=== PATIENT | male | born 1985 | race American Indian/Alaskan Native ===

== ENCOUNTER 2018-10-25 18:40 | Inpatient (IN) | payer OTHER ==
--- NOTE | 2018-10-25 19:12 | Emergency Department Report ---
Blank Doc - Documentation Documentation: This is a 33-year-old male that presents with abdominal pain and hematuria. D enies any n/v. This initial assessment/diagnostic orders/clinical plan/treatment(s) is/are subject to change based on patient's health status, clinical progression and re- assessment by fellow clinical providers in the ED. Further treatment and workup at subsequent clinical providers discretion. Patient/guardians urged not to elope from the ED as their condition may be serious if not clinically assessed and managed. Initial orders include: 1- Patient sent to MAIN ED for further evaluation and treatment 2- labs 3- UA
[2018-10-25 19:44] LABS: Basophils # (Auto) 0.1 K/mm3 (0.0-0.1); Basophils % (Auto) 0.5 % (0.0-1.8); Eosinophils # (Auto) 0.2 K/mm3 (0.0-0.4); Eosinophils % (Auto) 0.9 % (0.0-4.3); Hematocrit 44.6 % (35.5-45.6); Hemoglobin 15.4 gm/dl (11.8-15.2); Lymphocytes # (Auto) 1.5 K/mm3 (1.2-5.4); Lymphocytes % (Auto) 7.9 % (13.4-35.0); Mean Corpuscular HGB Conc 34 % (32-34); Mean Corpuscular Volume 99 fl (84-94); Monocytes # (Auto) 1.8 K/mm3 (0.0-0.8); Monocytes % (Auto) 9.8 % (0.0-7.3); Platelet Count 252 K/mm3 (140-440); Red Blood Count 4.52 M/mm3 (3.65-5.03); Red Cell Distribution Width 14.5 % (13.2-15.2)
[2018-10-25 20:06] LABS: Alanine Aminotransferase 15 units/L (7-56); Albumin 4.7 g/dL (3.9-5); BUN/Creatinine Ratio 8; Blood Urea Nitrogen 7 mg/dL (9-20); Calcium 9.8 mg/dL (8.4-10.2); Hemolysis Index 2
--- NOTE | 2018-10-25 20:08 | Emergency Department Report ---
ED Abdominal Pain HPI - General Chief Complaint: Abdominal Pain Stated Complaint: STOMACH PAIN/BLOOD IN STOOL/THYROID Time Seen by Provider: 10/25/18 19:11 Source: patient Mode of arrival: Wheelchair Limitations: No Limitations - History of Present Illness Initial Comments: Patient is a 33-year-old male that since emergency room with abdominal pain 1 d ay. Patient states he is having left lower quadrant pain that is worsening. Patient states the pain is an 8 out of 10. Patient states he is also having dysuria. Patient also complaining of constipation. Patient states the pain is radiating to the suprapubic region. Patient states the pain is better with rest and worse with movement. Patient states that also like a refill of his thyroid medication. MD Complaint: abdominal pain -: Sudden Location: LLQ Radiation: suprapubic Migration to: no migration Severity: severe Severity scale (0 -10): 8 Quality: stabbing Consistency: constant Improves With: rest Worsens With: eating, movement Associated Symptoms: constipation, dysuria, hematochezia. denies: nausea, vomiting, diarrhea, fever, chills, hematemesis, melena, hematuria, syncope - Related Data Home Medications Medication Instructions Recorded Confirmed Last Taken Levothyroxine [Synthroid] 75 mcg PO QAM 10/26/18 10/26/18 Unknown Allergies Allergy/AdvReac Type Severity Reaction Status Date / Time No Known Allergies Allergy Unverified 10/25/18 18:45 ED Review of Systems ROS: Stated complaint: STOMACH PAIN/BLOOD IN STOOL/THYROID Other details as noted in HPI Constitutional: denies: chills, fever Eyes: denies: eye pain, eye discharge, vision change ENT: denies: ear pain, throat pain Respiratory: denies: cough, shortness of breath, wheezing Cardiovascular: denies: chest pain, palpitations Endocrine: no symptoms reported Gastrointestinal: abdominal pain, constipation, hematochezia. denies: nausea, vomiting, diarrhea Genitourinary: dysuria. denies: urgency Musculoskeletal: denies: back pain, joint swelling, arthralgia Skin: denies: rash, lesions Neurological: denies: headache, weakness, paresthesias Psychiatric: denies: anxiety, depression Hematological/Lymphatic: denies: easy bleeding, easy bruising ED Past Medical Hx - Past Medical History Previous Medical History?: Yes Additional medical history: Hypothyroidism - Surgical History Past Surgical History?: No - Family History Family history: no significant - Social History Smoking Status: Current Every Day Smoker Substance Use Type: Marijuana - Medications Home Medications: Home Medications Medication Instructions Recorded Confirmed Last Taken Type Levothyroxine [Synthroid] 75 mcg PO QAM 10/26/18 10/26/18 Unknown History ED Physical Exam - General Limitations: No Limitations General appearance: alert, in no apparent distress - Head Head exam: Present: atraumatic, normocephalic - Eye Eye exam: Present: normal appearance - ENT ENT exam: Present: mucous membranes moist - Neck Neck exam: Present: normal inspection - Respiratory Respiratory exam: Present: normal lung sounds bilaterally. Absent: respiratory distress - Cardiovascular Cardiovascular Exam: Present: regular rate, normal rhythm. Absent: systolic murmur, diastolic murmur, rubs, gallop - GI/Abdominal GI/Abdominal exam: Present: soft, tenderness (left lower quadrant tenderness to palpation), normal bowel sounds - Rectal Rectal exam: Present: deferred - Extremities Exam Extremities exam: Present: normal inspection - Back Exam Back exam: Present: normal inspection - Neurological Exam Neurological exam: Present: alert, oriented X3 - Psychiatric Psychiatric exam: Present: normal affect, normal mood - Skin Skin exam: Present: warm, dry, intact, normal color. Absent: rash ED Course Vital Signs 10/25/18 10/25/18 10/25/18 19:12 22:32 23:45 Temperature 98.8 F Pulse Rate 81 74 Respiratory 18 18 Rate Blood Pressure 135/89 Blood Pressure 142/85 [Left] O2 Sat by Pulse 100 97 99 Oximetry - Reevaluation(s) Reevaluation #1: I discussed all results with patient. I discussed plan of care with patient. Patient agrees with plan of care. 10/25/18 22:59 - Consultations Consultation #1: General surgery paged 10/25/18 22:59 I discussed case with general surgeon, Dr. Tavarez. Gen. surgery recommends admission, IV antibiotics and nothing by mouth after midnight. 10/25/18 23:04 Consultation #2: Hospitalist consulted for admission. Hospitalist to admit the patient 10/25/18 23:07 ED Medical Decision Making - Lab Data Result diagrams: 10/25/18 19:21 10/25/18 19:21 - Radiology Data Radiology results: report reviewed CT ABDOMEN AND PELVIS WITHOUT AND WITH CONTRAST INDICATION / CLINICAL INFORMATION: Left lower quadrant abdominal pain. TECHNIQUE: Axial CT images were obtained through the abdomen and pelvis before and after 100 mL Omnipaque [address] scans at this location are performed using CT dose reduction for ALARA by means of automated exposure control. COMPARISON: None available. FINDINGS: LOWER CHEST: No significant abnormality. LIVER: No significant abnormality. GALLBLADDER: No significant abnormality. BILE DUCTS: No significant abnormality. PANCREAS: No significant abnormality. SPLEEN: No significant abnormality. ADRENALS: No significant abnormality. RIGHT KIDNEY and URETER: No significant abnormality. LEFT KIDNEY and URETER: No significant abnormality. STOMACH and SMALL BOWEL: No significant abnormality. COLON: Mild diffuse colonic diverticulosis. Moderate sigmoid diverticulosis. There is moderate pericolonic inflammation adjacent to the mid sigmoid colon. There is a small 1.2 cm intramural abscess along the posterior wall of the sigmoid colon as seen on axial series 5 image 134. There is no drainable abscess at this time. APPENDIX: No significant abnormality. PERITONEUM: Small amount of free fluid in the pelvis. No free air. No fluid collection. LYMPH NODES: No significant adenopathy. AORTA and ARTERIES: No significant abnormality. IVC and VEINS: No significant abnormality. URINARY BLADDER: No significant abnormality. REPRODUCTIVE ORGANS: No significant abnormality. ADDITIONAL FINDINGS: None. SKELETAL SYSTEM: No significant abnormality. IMPRESSION: 1. Acute sigmoid diverticulitis with small sigmoid intramural abscess. No free air or drainable abscess. - Medical Decision Making Patient is a 33-year-old male that since emergency with complaints of left lower quadrant abdominal pain and bright red blood per rectum, Constipation.. Patient had CT done and shows diverticulitis of the sigmoid colon with an intraoral abscess. Patient also got an elevated WBC. Rest of his labs are negative. Patient will be admitted to the hospital service. Patient will be given IV antibiotics and fluids. Gen. surgery consulted. - Differential Diagnosis diverticulitis. Left lower quadrant abdominal pain. Constipation. Critical Care Time: Yes Critical care attestation.: If time is entered above; I have spent that time in minutes in the direct care of this critically ill patient, excluding procedure time. Critical Care Time: 35 minutes ED Disposition Clinical Impression: BRBPR (bright red blood per rectum) Abdominal pain Qualifiers: Abdominal location: left lower quadrant Qualified Code(s): R10.32 - Left lower quadrant pain Diverticulitis large intestine Qualifiers: Diverticulitis bleeding: with bleeding Diverticulitis complication: with abscess Qualified Code(s): K57.21 - Diverticulitis of large intestine with perforation and abscess with bleeding Constipation Qualifiers: Constipation type: unspecified constipation type Qualified Code(s): K59.00 - Constipation, unspecified Disposition: OP ADMIT IP TO THIS HOSP Is pt being admited?: Yes Does the pt Need Aspirin: No Condition: Critical Time of Disposition: 23:09
[2018-10-25 20:52] LABS: Bilirubin,Urine NEG (Negative); Blood,Urine NEG (Negative); Color,Urine Yellow (Yellow); Mucus,Urine FEW /HPF; Protein,Urine <15 mg/dL mg/dL (Negative)
--- NOTE | 2018-10-25 22:48 | Cat Scan Report ---
CT ABDOMEN AND PELVIS WITHOUT AND WITH CONTRAST INDICATION / CLINICAL INFORMATION: Left lower quadrant abdominal pain. TECHNIQUE: Axial CT images were obtained through the abdomen and pelvis before and after 100 mL Omnipaque [address] scans at this location are performed using CT dose reduction for ALARA by means of automated exposure control. COMPARISON: None available. FINDINGS: LOWER CHEST: No significant abnormality. LIVER: No significant abnormality. GALLBLADDER: No significant abnormality. BILE DUCTS: No significant abnormality. PANCREAS: No significant abnormality. SPLEEN: No significant abnormality. ADRENALS: No significant abnormality. RIGHT KIDNEY and URETER: No significant abnormality. LEFT KIDNEY and URETER: No significant abnormality. STOMACH and SMALL BOWEL: No significant abnormality. COLON: Mild diffuse colonic diverticulosis. Moderate sigmoid diverticulosis. There is moderate mahsa lonic inflammation adjacent to the mid sigmoid colon. There is a small 1.2 cm intramural abscess benito g the posterior wall of the sigmoid colon as seen on axial series 5 image 134. There is no drainable abscess at this time. APPENDIX: No significant abnormality. PERITONEUM: Small amount of free fluid in the pelvis. No free air. No fluid collection. LYMPH NODES: No significant adenopathy. AORTA and ARTERIES: No significant abnormality. IVC and VEINS: No significant abnormality. URINARY BLADDER: No significant abnormality. REPRODUCTIVE ORGANS: No significant abnormality. ADDITIONAL FINDINGS: None. SKELETAL SYSTEM: No significant abnormality. IMPRESSION: 1. Acute sigmoid diverticulitis with small sigmoid intramural abscess. No free air or drainable absce ss. Signer Name: Jose Galarza MD Signed: 10/25/2018 10:44 PM Workstation Name: [id number]
[2018-10-25] MEDS ORDERED: ZOSYN/NS 4.5GM/100ML 4.5 GM/100 ML VIAL IV ONE (23:09)
[2018-10-25] MEDS ORDERED: DILAUDID IV ONE (23:10)
[2018-10-25] MEDS ORDERED: NACL 0.9% 1000 ML 1,000 ML IV ONE (23:10)
[2018-10-25] MEDS ORDERED: ZOFRAN IV PRN (23:36)
[2018-10-25] MEDS ORDERED: TYLENOL PO PRN (23:36)
[2018-10-25] MEDS ORDERED: SODIUM CHLORIDE FLUSH SYRINGE 10 ML IV PRN (23:36)
--- NOTE | 2018-10-25 23:41 | History and Physical Report ---
History of Present Illness Date of examination: 10/25/18 History of present illness: 33-year-old male with a history of hypothyroidism because emergency room with complaints of abdominal pain which has been ongoing over the last 4-5 months. Pain is in the left lower quadrant, sharp, sometimes dull, intensity 7/10, radi ating to the scrotum, relieved with pain medication gives a emergency room. He is at nausea vomiting, none today. He is also noted blood in his stool on several occasion with the abdominal pain no NSAID use eview Of Systems: Constitutional: no weight loss, fever, chills Ears, eyes, nose, mouth and throat: no nasal congestion, no nasal discharge, no sinus pressure, blurry vision, diplopia Neck: No neck pain or rigidity. Cardiovascular: No palpitations, chest pain Respiratory: No shortness of breath, cough Gastrointestinal:+hematochezia, abdominal pain Genitourinary : no dysuria, frequency , hematuria Musculoskeletal: no muscle ache , joint pain Integumentary: no rash, no pruritis Neurological: no parathesias, focal weakness Endocrine: no cold or heat intolerance, no polyuria or polydipsia Hematologic/Lymphatic: no easy bruising, no easy bleeding, no gland swelling Allergic/Immunologic: no urticaria, no angioedema. SPAST MEDICAL HISTORY:hypothyroidism PAST SURGICAL HISTORY: None FAMILY HISTORY:hypertension, diabetes SOCIAL HISTORY: + tobacco, + marijuana, no alcohol Medications and Allergies Allergies Allergy/AdvReac Type Severity Reaction Status Date / Time No Known Allergies Allergy Unverified 10/25/18 18:45 Home Medications Medication Instructions Recorded Confirmed Last Taken Type Levothyroxine [Synthroid] 75 mcg PO QAM 10/26/18 10/26/18 Unknown History Ciprofloxacin HCl [Ciprofloxacin 500 mg PO Q12HR #28 tab 10/27/18 Unknown Rx TAB] metroNIDAZOLE [Flagyl TAB] 500 mg PO Q12HR #28 tab 10/27/18 Unknown Rx Active Meds: Active Medications Sodium Chloride (Nacl 0.9% 1000 Ml) 1,000 mls @ 999 mls/hr IV BOLUS ONE Stop: 10/26/18 00:10 Last Admin: 10/25/18 23:27 Dose: 999 mls/hr Documented by: Exam - Physical Exam Narrative exam: General Apperance: The patient sitting in bed no acute distress HEENT: Normocephalic, atraumatic. Pupils equally round and reactive to light, extraocular movement intact, and no sclericterus or JVD or thyromegaly or nodule. Neck supple, no carotid bruit, mucous membranes moist, no exudate or erythema Heart: S1-S2, regular is rhythm Lungs: Clear to auscultation bilaterally, breathing comfortable Abdomen: Positive bowel sounds, soft, tender left lower quadrant, nondistended, no organomegaly Extremities: No edema cyanosis clubbing Skin: no rash, nodule, warm and dry Neuro:CN 2 -12 intact, motor/sensory intact, speech is fluent - Constitutional Vitals: Temp Pulse Resp BP Pulse Ox 98.8 F 74 18 142/85 97 10/25/18 19:12 10/25/18 22:32 10/25/18 22:32 10/25/18 22:32 10/25/18 22:32 Results - Labs CBC & Chem 7: 10/27/18 05:10 10/26/18 04:43 Labs: Abnormal lab results 10/25/18 10/25/18 Range/Units 19:21 19:21 WBC 18.6 H (4.5-11.0) K/mm3 Hgb 15.4 H (11.8-15.2) gm/dl MCV 99 H (84-94) fl MCH 34 H (28-32) pg Lymph % (Auto) 7.9 L (13.4-35.0) % Shannon % (Auto) 9.8 H (0.0-7.3) % Shannon # 1.8 H (0.0-0.8) K/mm3 Seg Neutrophils % 80.9 H (40.0-70.0) % Seg Neutrophils # 15.0 H (1.8-7.7) K/mm3 Sodium 136 L (137-145) mmol/L Chloride 97.7 L (98-107) mmol/L BUN 7 L (9-20) mg/dL - Imaging and Cardiology EKG: image reviewed CT scan - abdomen: report reviewed CT scan - pelvis: report reviewed Assessment and Plan Assessment Abdominal abscess Blood per rectum, ?hemmorroids Hypothyroidism Plan Admit to medicine Start IV fluid, IV Zosyn, IV morphine, follow cultures Consult GI, surgery, hemoglobin stable DVT prophylaxis
[2018-10-26] MEDS: MORPHINE IV PRN (02:17)
[2018-10-26] MEDS: NACL 0.9% 1000 ML 1,000 ML IV SCH ×3 (02:29→21:44)
[2018-10-26 05:37] LABS: Basophils % (Auto) 0.3 % (0.0-1.8); Eosinophils # (Auto) 0.4 K/mm3 (0.0-0.4); Eosinophils % (Auto) 3.4 % (0.0-4.3); Hemoglobin 14.3 gm/dl (11.8-15.2); Lymphocytes % (Auto) 18.7 % (13.4-35.0); Mean Corpuscular HGB Conc 34 % (32-34); Mean Corpuscular Volume 100 fl (84-94); Monocytes # (Auto) 1.5 K/mm3 (0.0-0.8); Monocytes % (Auto) 14.2 % (0.0-7.3); Platelet Count 234 K/mm3 (140-440); Red Cell Distribution Width 14.5 % (13.2-15.2)
[2018-10-26 06:01] LABS: BUN/Creatinine Ratio 9; Blood Urea Nitrogen 8 mg/dL (9-20); Hemolysis Index 6
[2018-10-26] MEDS: ZOSYN/NS 4.5GM/100ML 4.5 GM/100 ML VIAL IV SCH ×3 (06:49→17:03)
--- NOTE | 2018-10-26 10:09 | Progress Note ---
Assessment and Plan Full consult dictated: 33 y/o male admitted secondary to LLQ & suprapubic abd pain. Pt states feeling much better Abd soft, non tender at present CT reviewed with radiologist. sigmoid diverticulitis. no free perforation. possible early small abscess formation. imp diverticulitis surgically stable rec NPO except for ice chips and meds may begin cl liq in 24 to 48 hrs once pain completely subsides and not requiring narcotics. ID eval GI eval - will need colonoscopy in 6-8 wks once acute process subsides. (Pt states has had this pain "on & off" for 6 months. also FH of colon CA) will follow Date of examination: 10/25/18 History of present illness: 33-year-old male with a history of hypothyroidism because emergency room with complaints of abdominal pain which has been ongoing over the last 4-5 months. Pain is in the left lower quadrant, sharp, sometimes dull, intensity 7/10, radiating to the scrotum, relieved with pain medication gives a emergency room. He is at nausea vomiting, none today. He is also noted blood in his stool on several occasion with the abdominal pain no NSAID use eview Of Systems: Constitutional: no weight loss, fever, chills Ears, eyes, nose, mouth and throat: no nasal congestion, no nasal discharge, no sinus pressure, blurry vision, diplopia Neck: No neck pain or rigidity. Cardiovascular: No palpitations, chest pain Respiratory: No shortness of breath, cough Gastrointestinal:+hematochezia, abdominal pain Genitourinary : no dysuria, frequency , hematuria Musculoskeletal: no muscle ache , joint pain Integumentary: no rash, no pruritis Neurological: no parathesias, focal weakness Endocrine: no cold or heat intolerance, no polyuria or polydipsia Hematologic/Lymphatic: no easy bruising, no easy bleeding, no gland swelling Allergic/Immunologic: no urticaria, no angioedema. SPAST MEDICAL HISTORY:hypothyroidism PAST SURGICAL HISTORY: None FAMILY HISTORY:hypertension, diabetes SOCIAL HISTORY: + tobacco, + marijuana, no alcohol Selected Entries 10/26/18 07:28 Temperature 97.9 F Pulse Rate 71 Respiratory 18 Rate Blood Pressure 131/80 Laboratory Tests 10/26/18 10/26/18 04:43 04:43 WBC 10.6 Hgb 14.3 Hct 42.0 Sodium 140 Potassium 4.2 Chloride 102.6 Carbon Dioxide 26 Anion Gap 16 BUN 8 L Objective Vital Signs - 12hr 10/25/18 10/25/18 10/25/18 22:32 23:23 23:30 Temperature Pulse Rate 74 Respiratory 18 Rate Blood Pressure 138/84 138/84 Blood Pressure 142/85 [Left] O2 Sat by Pulse 97 100 99 Oximetry 10/25/18 10/25/18 10/26/18 23:45 23:59 00:01 Temperature Pulse Rate Respiratory Rate Blood Pressure 135/80 Blood Pressure [Left] O2 Sat by Pulse 99 99 99 Oximetry 10/26/18 10/26/18 10/26/18 00:11 00:21 00:30 Temperature Pulse Rate Respiratory Rate Blood Pressure 138/84 138/84 138/84 Blood Pressure [Left] O2 Sat by Pulse 99 98 99 Oximetry 10/26/18 10/26/18 10/26/18 01:16 01:19 03:04 Temperature 98.0 F 98.0 F Pulse Rate 55 L Respiratory 16 24 Rate Blood Pressure 124/79 Blood Pressure [Left] O2 Sat by Pulse 97 97 Oximetry 10/26/18 10/26/18 10/26/18 04:28 07:28 07:36 Temperature 97.9 F 97.9 F Pulse Rate 65 71 Respiratory 16 18 Rate Blood Pressure 128/85 131/80 Blood Pressure [Left] O2 Sat by Pulse 97 96 98 Oximetry - Labs 10/26/18 04:43 10/26/18 04:43 Diabetes panel 10/25/18 10/26/18 Range/Units 19:21 04:43 Sodium 136 L 140 (137-145) mmol/L Potassium 4.0 4.2 (3.6-5.0) mmol/L Chloride 97.7 L 102.6 (98-107) mmol/L Carbon Dioxide 28 26 (22-30) mmol/L BUN 7 L 8 L (9-20) mg/dL Creatinine 0.9 0.9 (0.8-1.5) mg/dL Glucose 94 80 (75-100) mg/dL Calcium 9.8 9.0 (8.4-10.2) mg/dL AST 19 (5-40) units/L ALT 15 (7-56) units/L Alkaline Phosphatase 49 (35-129) units/L Total Protein 7.6 (6.3-8.2) g/dL Albumin 4.7 (3.9-5) g/dL Calcium panel 10/25/18 10/26/18 Range/Units 19:21 04:43 Calcium 9.8 9.0 (8.4-10.2) mg/dL Albumin 4.7 (3.9-5) g/dL Pituitary panel 10/25/18 10/26/18 Range/Units 19:21 04:43 Sodium 136 L 140 (137-145) mmol/L Potassium 4.0 4.2 (3.6-5.0) mmol/L Chloride 97.7 L 102.6 (98-107) mmol/L Carbon Dioxide 28 26 (22-30) mmol/L BUN 7 L 8 L (9-20) mg/dL Creatinine 0.9 0.9 (0.8-1.5) mg/dL Glucose 94 80 (75-100) mg/dL Calcium 9.8 9.0 (8.4-10.2) mg/dL Adrenal panel 10/25/18 10/26/18 Range/Units 19:21 04:43 Sodium 136 L 140 (137-145) mmol/L Potassium 4.0 4.2 (3.6-5.0) mmol/L Chloride 97.7 L 102.6 (98-107) mmol/L Carbon Dioxide 28 26 (22-30) mmol/L BUN 7 L 8 L (9-20) mg/dL Creatinine 0.9 0.9 (0.8-1.5) mg/dL Glucose 94 80 (75-100) mg/dL Calcium 9.8 9.0 (8.4-10.2) mg/dL Total Bilirubin 0.70 (0.1-1.2) mg/dL AST 19 (5-40) units/L ALT 15 (7-56) units/L Alkaline Phosphatase 49 (35-129) units/L Total Protein 7.6 (6.3-8.2) g/dL Albumin 4.7 (3.9-5) g/dL
[2018-10-26] MEDS: SODIUM CHLORIDE FLUSH SYRINGE 10 ML IV SCH (10:16)
--- NOTE | 2018-10-26 11:09 | Gastroenterology Consultation ---
History of Present Illness - Reason for Consult Consult date: 10/26/18 BPR/diverticulitis Requesting physician: BAILEY GAMBOA - History of Present Illness Patient is a 33 y/o male with PMH of hypothyroidism who presented to ED with c/o LLQ abdominal pain that had been intermittent x ~6 months but progressively worsened yesterday with associated fever, N/V, and constipation with blood in stool. Upon admission, he was found to have acute diverticulitis to which GI has been consulted. Surgery following. This morning patient was resting in bed w/o acute distress. Reports feeling better with abd pain and N/V improving. Reports BM yesterday with small amount of stool which was green in color with a scant amount of bright red blood on TP with wiping. No hematemesis, melena, or further signs of bleeding this am. Admits to some recent wt loss over the last couple of weeks associated with current symptoms. Denies CP, SOB, dysphagia, or diarrhea. No hx of GI bleeding or IBD. No previous colonoscopy. States he was told by his mother that there is a family hx of colon CA, but he is unsure of who (unaware of any immediate family members with CA). Past History Past Medical History: hypothyroidism Past Surgical History: No surgical history Social history: smoking, other (ma[place]ana) Family history: diabetes, hypertension Medications and Allergies Allergies Allergy/AdvReac Type Severity Reaction Status Date / Time No Known Allergies Allergy Unverified 10/25/18 18:45 Home Medications Medication Instructions Recorded Confirmed Last Taken Type Levothyroxine [Synthroid] 75 mcg PO QAM 10/26/18 10/26/18 Unknown History Active Meds: Active Medications Acetaminophen (Tylenol) 650 mg PO Q4H PRN PRN Reason: Pain MILD(1-3)/Fever >100.5/LAFLEUR Sodium Chloride (Nacl 0.9% 1000 Ml) 1,000 mls @ 150 mls/hr IV DIRECT VIVIAN Last Admin: 10/26/18 02:29 Dose: 150 mls/hr Documented by: Piperacillin Sod/Tazobactam Sod (Zosyn/Ns 4.5gm/100ml) 4.5 gm in 100 mls @ 200 mls/hr IV Q6HR VIVIAN; Protocol Last Admin: 10/26/18 06:49 Dose: 200 mls/hr Documented by: Morphine Sulfate (Morphine) 2 mg IV Q4H PRN PRN Reason: Pain, Moderate (4-6) Last Admin: 10/26/18 02:17 Dose: 2 mg Documented by: Ondansetron HCl (Zofran) 4 mg IV Q4H PRN PRN Reason: Nausea And Vomiting Last Admin: 10/26/18 02:19 Dose: 4 mg Documented by: Sodium Chloride (Sodium Chloride Flush Syringe 10 Ml) 10 ml IV BID VIVIAN Sodium Chloride (Sodium Chloride Flush Syringe 10 Ml) 10 ml IV PRN PRN PRN Reason: LINE FLUSH medications reviewed/updated as required Review of Systems - Review of Systems All systems: negative Gastrointestinal: abdominal pain, nausea, BRBPR Exam - Constitutional Vital Signs: Temp Pulse Resp BP Pulse Ox 97.9 F 71 18 131/80 98 10/26/18 07:28 10/26/18 07:28 10/26/18 07:28 10/26/18 07:28 10/26/18 07:36 General appearance: no acute distress - Respiratory Respiratory effort: normal Respiratory: bilateral: CTA - Cardiovascular Rhythm: regular - Gastrointestinal General gastrointestinal: Present: soft, tender (slight TTP in LLQ), normal bowel sounds - Neurologic Neurological: alert and oriented x3 - Labs CBC & Chem 7: 10/26/18 04:43 10/26/18 04:43 Lab Results: Laboratory Results - last 24 hr 10/25/18 10/25/18 10/25/18 19:21 19:21 20:35 WBC 18.6 H RBC 4.52 Hgb 15.4 H Hct 44.6 MCV 99 H MCH 34 H MCHC 34 RDW 14.5 Plt Count 252 Lymph % (Auto) 7.9 L [place] % (Auto) 9.8 H Eos % (Auto) 0.9 Baso % (Auto) 0.5 Lymph # 1.5 [place] # 1.8 H Eos # 0.2 Baso # 0.1 Seg Neutrophils % 80.9 H Seg Neutrophils # 15.0 H Sodium 136 L Potassium 4.0 Chloride 97.7 L Carbon Dioxide 28 Anion Gap 14 BUN 7 L Creatinine 0.9 Estimated GFR > 60 BUN/Creatinine Ratio 8 Glucose 94 Calcium 9.8 Total Bilirubin 0.70 AST 19 ALT 15 Alkaline Phosphatase 49 Total Protein 7.6 Albumin 4.7 Albumin/Globulin Ratio 1.6 Urine Color Yellow Urine Turbidity Clear Urine pH 6.0 Ur Specific [place] 1.025 Urine Protein <15 mg/dl Urine Glucose (UA) Neg Urine Ketones Tr Urine Blood Neg Urine Nitrite Neg Urine Bilirubin Neg Urine Urobilinogen 4.0 Ur Leukocyte Esterase Neg Urine WBC (Auto) 1.0 Urine RBC (Auto) 4.0 Urine Mucus Few 10/26/18 10/26/18 04:43 04:43 WBC 10.6 RBC 4.20 Hgb 14.3 Hct 42.0 MCV 100 H MCH 34 H MCHC 34 RDW 14.5 Plt Count 234 Lymph % (Auto) 18.7 [place] % (Auto) 14.2 H Eos % (Auto) 3.4 Baso % (Auto) 0.3 Lymph # 2.0 [place] # 1.5 H Eos # 0.4 Baso # 0.0 Seg Neutrophils % 63.4 Seg Neutrophils # 6.8 Sodium 140 Potassium 4.2 Chloride 102.6 Carbon Dioxide 26 Anion Gap 16 BUN 8 L Creatinine 0.9 Estimated GFR > 60 BUN/Creatinine Ratio 9 Glucose 80 Calcium 9.0 Total Bilirubin AST ALT Alkaline Phosphatase Total Protein Albumin Albumin/Globulin Ratio Urine Color Urine Turbidity Urine pH Ur Specific [place] Urine Protein Urine Glucose (UA) Urine Ketones Urine Blood Urine Nitrite Urine Bilirubin Urine Urobilinogen Ur Leukocyte Esterase Urine WBC (Auto) Urine RBC (Auto) Urine Mucus Assessment and Plan 1.acute diverticulitis -afebrile -WBC 10.6-trending down -H/H WNL (14.3/42.0)- no active signs of bleeding -abd CT revealed sigmoid diverticulitis with a small sigmoid intramural abscess (not drainable) -clinically, patient is stable. Reports feeling better with abd pain and N/V improving. -Surgery and ID following -continue antibiotics per ID recommendations and supportive care -recommend patient f/u in clinic upon discharge to schedule outpatient colonoscopy in ~4-6 weeks after resolution of acute process (r/o IBD, neoplasm, etc.; plan discussed with patient with understanding voiced) -further management per surgery -will sign off, please call if needed
--- NOTE | 2018-10-26 11:45 | Consultation ---
History of Present Illness - Reason for Consult Consult date: 10/26/18 - History of Present Illness 33 yo M PMHx hypothyroidism initially presented to the ER complaining of abdominal pain. He notes the pain initially started approximately 4 months ago in the LLQ which radiated to the scrotum and was radiated a 7/10. He relieved the pain with pain medications, however it continued to progress, eventually culminating with nausea and vomiting which prompted his ER visit. He also noted some blood in his stool throughout the course of his illness. He feels improved today and would like to start eating. Afebrile since admission with a white count that was initially elevated to 19 but has since returned to normal. He is currently receiving pip-tazo. No cultures are available for review. A CT of the abdomen and pelvis revealed sigmoid diverticulitis with a small sigmoid intramural abscess. There was no drainable abscess, however. Past History Past Medical History: hyperthyroidism Past Surgical History: No surgical history Social history: denies: smoking, alcohol abuse Family history: no significant family history Medications and Allergies Allergies Allergy/AdvReac Type Severity Reaction Status Date / Time No Known Allergies Allergy Unverified 10/25/18 18:45 Home Medications Medication Instructions Recorded Confirmed Last Taken Type Levothyroxine [Synthroid] 75 mcg PO QAM 10/26/18 10/26/18 Unknown History Active Meds: Active Medications Acetaminophen (Tylenol) 650 mg PO Q4H PRN PRN Reason: Pain MILD(1-3)/Fever >100.5/LAFLEUR Sodium Chloride (Nacl 0.9% 1000 Ml) 1,000 mls @ 150 mls/hr IV DIRECT VIVIAN Last Admin: 10/26/18 02:29 Dose: 150 mls/hr Documented by: Piperacillin Sod/Tazobactam Sod (Zosyn/Ns 4.5gm/100ml) 4.5 gm in 100 mls @ 200 mls/hr IV Q6HR VIVIAN; Protocol Last Admin: 10/26/18 06:49 Dose: 200 mls/hr Documented by: Morphine Sulfate (Morphine) 2 mg IV Q4H PRN PRN Reason: Pain, Moderate (4-6) Last Admin: 10/26/18 02:17 Dose: 2 mg Documented by: Ondansetron HCl (Zofran) 4 mg IV Q4H PRN PRN Reason: Nausea And Vomiting Last Admin: 10/26/18 02:19 Dose: 4 mg Documented by: Sodium Chloride (Sodium Chloride Flush Syringe 10 Ml) 10 ml IV BID VIVIAN Sodium Chloride (Sodium Chloride Flush Syringe 10 Ml) 10 ml IV PRN PRN PRN Reason: LINE FLUSH Review of Systems Constitutional: no fever, no chills, no sweats Ears, nose, mouth and throat: no sinus pain, no dysphagia, no sore throat Cardiovascular: no chest pain, no orthopnea, no palpitations Respiratory: no cough, no shortness of breath, no dyspnea on exertion Gastrointestinal: abdominal pain, nausea, vomiting, hematochezia, no diarrhea Genitourinary Male: no dysuria, no flank pain, no urinary frequency Musculoskeletal: no neck pain, no low back pain, no redness of joints Integumentary: no rash, no pruritis, no redness, no sores Neurological: no weakness, no parathesias, no numbness Endocrine: no polydipsia, no polyuria, no nocturia Hematologic/Lymphatic: no easy bruising, no easy bleeding, no lymphadenopathy Physical Examination - Physical Exam Narrative exam: Constitutional: awake, no distress, following commands Head, Ears, Nose: Normocephalic, atraumatic. External ears, nose normal Eyes: Conjunctivae/corneas clear. No icterus. No ptosis. Neck: Supple, no meningeal signs Oral: fair dentition, moist mucous membranes Cardiovascular: S1, S2 normal. Normal rhythm Respiratory: Good air entry, clear to auscultation bilaterally GI: Soft, non-tender; bowel sounds normal. No peritoneal signs Musculoskeletal: No pedal edema, Skin: No rash or abscess Hem/Lymphatic: No palpable cervical or supraclavicular nodes. No lymphangitis Psych: no agitation Neurological: Moves all extremities, no focal defects - Constitutional Vitals: Vital Signs Temp Pulse Resp BP Pulse Ox 97.9 F 71 18 131/80 98 10/26/18 07:28 10/26/18 07:28 10/26/18 07:28 10/26/18 07:28 10/26/18 07:36 Temperature -Last 24 Hours Temperature 97.9 F Temperature 97.9 F Temperature 98.0 F Temperature 98.0 F Temperature 98.8 F Results - Labs CBC & Chem 7: 10/26/18 04:43 10/26/18 04:43 Labs: Abnormal lab results 10/25/18 10/25/18 10/26/18 Range/Units 19:21 19:21 04:43 WBC 18.6 H (4.5-11.0) K/mm3 Hgb 15.4 H (11.8-15.2) gm/dl MCV 99 H 100 H (84-94) fl MCH 34 H 34 H (28-32) pg Lymph % (Auto) 7.9 L (13.4-35.0) % [place] % (Auto) 9.8 H 14.2 H (0.0-7.3) % [place] # 1.8 H 1.5 H (0.0-0.8) K/mm3 Seg Neutrophils % 80.9 H (40.0-70.0) % Seg Neutrophils # 15.0 H (1.8-7.7) K/mm3 Sodium 136 L (137-145) mmol/L Chloride 97.7 L (98-107) mmol/L BUN 7 L (9-20) mg/dL 10/26/18 Range/Units 04:43 WBC (4.5-11.0) K/mm3 Hgb (11.8-15.2) gm/dl MCV (84-94) fl MCH (28-32) pg Lymph % (Auto) (13.4-35.0) % [place] % (Auto) (0.0-7.3) % [place] # (0.0-0.8) K/mm3 Seg Neutrophils % (40.0-70.0) % Seg Neutrophils # (1.8-7.7) K/mm3 Sodium (137-145) mmol/L Chloride (98-107) mmol/L BUN 8 L (9-20) mg/dL - Imaging and Cardiology CT scan - abdomen: image reviewed Assessment and Plan A/P: 33 yo M PMHx hypothyroidism admitted with diverticulitis 1. Diverticulitis - Improving on pip-tazo. Continue IV antibiotics while inpatient. When ready for discharge, I would send home on ciprofloxacin and metronidazole. He should follow up in my clinic as well. He should complete 2 total weeks of therapy, including time on pip-tazo. 2. Hypothyroidism Recs: - continue pip-tazo while inpatient. - on discharge please send out with ciprofloxacin PO 500mg q12h and metronidazole 500mg q8h. The stop date will be 11/08 - follow up with me on 11/07. Sent to production administrative assistant. Zari Orozco MD [facility] ([facility]) C: [phone] O: [phone] F: [phone]
--- NOTE | 2018-10-26 16:19 | Progress Note ---
Assessment and Plan Assessment and plan: 33-year-old male with a history of hypothyroidism because emergency room with complaints of abdominal pain which has been ongoing over the last 4-5 months. Pain is in the left lower quadrant, sharp, sometimes dull, intensity 7/10, radiating to the scrotum, relieved with pain medication gives a emergency room. He is at nausea vomiting, none today. He is also noted blood in his stool on several occasion with the abdominal pain no NSAID use Acute Diverticulitis BRPR secondary to above Hypothyrodisim Plan Supportive care Continue abx continue IVF Keep NPO PAIN CONTROL SURGERY, ID, GI input noted DVT/GI PROPHY Discussed with GI and outpatient colonoscopy in 6 weeks to r/o mass or IBD. History Interval history: Patient seen and examined today, report abdominal pain is improving. Hospitalist Physical - Constitutional Vitals: Temp Pulse Resp BP Pulse Ox 97.9 F 71 18 131/80 98 10/26/18 07:28 10/26/18 07:28 10/26/18 07:28 10/26/18 07:28 10/26/18 07:36 General appearance: Present: no acute distress - EENT Eyes: Present: PERRL, EOM intact ENT: hearing intact, clear oral mucosa - Neck Neck: Present: supple, normal ROM - Respiratory Respiratory effort: normal Respiratory: bilateral: CTA - Cardiovascular Rhythm: regular Heart Sounds: Present: S1 & S2, systolic murmur - Extremities Extremities: no ischemia, pulses intact, pulses symmetrical, No edema, Full ROM Peripheral Pulses: within normal limits - Abdominal General gastrointestinal: soft, non-distended, normal bowel sounds Localized gastrointestinal: tender: LLQ - Integumentary Integumentary: Present: clear, warm - Psychiatric Psychiatric: appropriate mood/affect, intact judgment & insight, memory intact, cooperative - Neurologic Neurologic: CNII-XII intact, moves all extremities - Allied Health Allied health notes reviewed: nursing Results - Labs CBC & Chem 7: 10/27/18 05:10 10/26/18 04:43 Labs: Laboratory Last Values WBC 10.6 K/mm3 (4.5-11.0) 10/26/18 04:43 RBC 4.20 M/mm3 (3.65-5.03) 10/26/18 04:43 Hgb 14.3 gm/dl (11.8-15.2) 10/26/18 04:43 Hct 42.0 % (35.5-45.6) 10/26/18 04:43 MCV 100 fl (84-94) H 10/26/18 04:43 MCH 34 pg (28-32) H 10/26/18 04:43 MCHC 34 % (32-34) 10/26/18 04:43 RDW 14.5 % (13.2-15.2) 10/26/18 04:43 Plt Count 234 K/mm3 (140-440) 10/26/18 04:43 Lymph % (Auto) 18.7 % (13.4-35.0) 10/26/18 04:43 [place] % (Auto) 14.2 % (0.0-7.3) H 10/26/18 04:43 Eos % (Auto) 3.4 % (0.0-4.3) 10/26/18 04:43 Baso % (Auto) 0.3 % (0.0-1.8) 10/26/18 04:43 Lymph # 2.0 K/mm3 (1.2-5.4) 10/26/18 04:43 [place] # 1.5 K/mm3 (0.0-0.8) H 10/26/18 04:43 Eos # 0.4 K/mm3 (0.0-0.4) 10/26/18 04:43 Baso # 0.0 K/mm3 (0.0-0.1) 10/26/18 04:43 Seg Neutrophils % 63.4 % (40.0-70.0) 10/26/18 04:43 Seg Neutrophils # 6.8 K/mm3 (1.8-7.7) 10/26/18 04:43 Sodium 140 mmol/L (137-145) 10/26/18 04:43 Potassium 4.2 mmol/L (3.6-5.0) 10/26/18 04:43 Chloride 102.6 mmol/L (98-107) 10/26/18 04:43 Carbon Dioxide 26 mmol/L (22-30) 10/26/18 04:43 16 mmol/L 10/26/18 04:43 BUN 8 mg/dL (9-20) L 10/26/18 04:43 0.9 mg/dL (0.8-1.5) 10/26/18 04:43 Estimated GFR > 60 ml/min 10/26/18 04:43 9 % 10/26/18 04:43 Glucose 80 mg/dL (75-100) 10/26/18 04:43 Calcium 9.0 mg/dL (8.4-10.2) 10/26/18 04:43 0.70 mg/dL (0.1-1.2) 10/25/18 19:21 AST 19 units/L (5-40) 10/25/18 19:21 ALT 15 units/L (7-56) 10/25/18 19:21 49 units/L (35-129) 10/25/18 19:21 7.6 g/dL (6.3-8.2) 10/25/18 19:21 4.7 g/dL (3.9-5) 10/25/18 19:21 1.6 % 10/25/18 19:21 Yellow (Yellow) 10/25/18 20:35 Clear (Clear) 10/25/18 20:35 6.0 (5.0-7.0) 10/25/18 20:35 Ur Specific [place] 1.025 (1.003-1.030) 10/25/18 20:35 <15 mg/dl mg/dL (Negative) 10/25/18 20:35 Neg mg/dL (Negative) 10/25/18 20:35 Tr mg/dL (Negative) 10/25/18 20:35 Neg (Negative) 10/25/18 20:35 Neg (Negative) 10/25/18 20:35 Neg (Negative) 10/25/18 20:35 4.0 mg/dL (<2.0) 10/25/18 20:35 Ur Leukocyte Esterase Neg (Negative) 10/25/18 20:35 1.0 /HPF (0.0-6.0) 10/25/18 20:35 4.0 /HPF (0.0-6.0) 10/25/18 20:35 Few /HPF 10/25/18 20:35 Active Medications - Current Medications Current Medications: Generic Name Dose Route Start Last Admin Trade Name Freq PRN Reason Stop Dose Admin Acetaminophen 650 mg 10/25/18 23:36 Tylenol PO Q4H PRN Pain MILD(1-3)/Fever >100.5/LAFLEUR Sodium Chloride 1,000 mls @ 150 mls/hr 10/25/18 23:45 10/26/18 11:00 Nacl 0.9% 1000 Ml IV 150 mls/hr DIRECT VIVIAN Administration Piperacillin Sod/Tazobactam Sod 4.5 gm in 100 mls @ 200 mls/hr 10/26/18 06:00 10/26/18 12:15 Zosyn/Ns 4.5gm/100ml IV 200 mls/hr Q6HR VIVIAN Administration Protocol Morphine Sulfate 2 mg 10/25/18 23:36 10/26/18 02:17 Morphine IV 2 mg Q4H PRN Administration Pain, Moderate (4-6) Ondansetron HCl 4 mg 10/25/18 23:36 10/26/18 02:19 Zofran IV 4 mg Q4H PRN Administration Nausea And Vomiting Sodium Chloride 10 ml 10/26/18 10:00 10/26/18 10:16 Sodium Chloride Flush Syringe 10 Ml IV 10 ml BID VIVIAN Administration Sodium Chloride 10 ml 10/25/18 23:36 Sodium Chloride Flush Syringe 10 Ml IV PRN PRN LINE FLUSH
--- NOTE | 2018-10-26 16:45 | Consultation ---
REASON FOR CONSULTATION: Rule out diverticulitis. HISTORY OF PRESENT ILLNESS: The patient is a healthy 33-year-old gentleman, who presented to the Emergency Room with recent onset of left lower quadrant abdominal pain radiating to the suprapubic region. The patient also states it hurts some when he urinates. States he had one episode of vomiting, but otherwise no nausea and vomiting. States he has probably had " The patient also states this pain has been going months, but the pain acutely exacerbated yesterday, thus requiring his arrival to the Emergency Room. PAST MEDICAL HISTORY: Pertinent for hypothyroidism. The patient is supposed to be taking Synthroid, but it is not taking it because he has no primary care physician. PAST SURGICAL HISTORY: Negative. ALLERGIES: No known allergies. MEDICATIONS: Again, the patient should be taking Synthroid. FAMILY HISTORY: Thyroid disease and colon cancer. SOCIAL HISTORY: Admits to smoking marijuana and cigarettes. States occasional ethanol intake. REVIEW OF SYSTEMS: Noncontributory. PHYSICAL EXAMINATION: GENERAL: At this time reveals the patient to be awake, alert, and cooperative. States he is " VITAL SIGNS: Temperature currently is 97.9, blood pressure 131/80, pulse is 71, respirations of 18. ABDOMEN: Examination of the abdomen reveals to be soft and nontender at present. Bowel sounds are present. LABORATORY DATA: Includes a CBC, which shows a white count of 10.6. Apparently white count was 18.6 on admission. The patient has since been placed on piperacillin. H and H is 14.3 and 42.0. Electrolytes are all within normal limits. LFTs are also within normal limits. CT scan of the abdomen has been done which I reviewed with the radiologist. There are indeed findings consistent with sigmoid diverticulitis. There may be very small early onset abscess formation certainly too small to drain at this time. There is no evidence of any free air or free perforation. IMPRESSION: At this time is that of a 33-year-old gentleman, rule out diverticulitis with no true abscess formation or perforation at this time. RECOMMENDATIONS: Recommend keeping the patient n.p.o. except for ice chips and meds. May begin attempt of clear liquid diet in 24-48 hours once the patient's pain completely subsides and is not requiring any narcotics. Also we will obtain ID evaluation and GI evaluation. The patient will eventually need a colonoscopy in 6-8 weeks once the acute process subsides again taking into account the patient's recent history of on and off pain in this area for the last 6 months and also the fact that the patient has a positive family history of colon cancer. I will follow with you. Thank you very much for consultation. JOB# [id number] LEV/RANDY
[2018-10-27] MEDS: ZOSYN/NS 4.5GM/100ML 4.5 GM/100 ML VIAL IV SCH ×4 (00:58→18:04)
[2018-10-27] MEDS: SODIUM CHLORIDE FLUSH SYRINGE 10 ML IV SCH ×3 (00:59→22:00)
[2018-10-27 06:11] LABS: Basophils % (Auto) 0.4 % (0.0-1.8); Eosinophils # (Auto) 0.4 K/mm3 (0.0-0.4); Eosinophils % (Auto) 5.5 % (0.0-4.3); Hematocrit 39.8 % (35.5-45.6); Hemoglobin 13.3 gm/dl (11.8-15.2); Lymphocytes # (Auto) 1.2 K/mm3 (1.2-5.4); Lymphocytes % (Auto) 15.7 % (13.4-35.0); Mean Corpuscular HGB Conc 33 % (32-34); Mean Corpuscular Volume 101 fl (84-94); Monocytes % (Auto) 13.1 % (0.0-7.3); Platelet Count 216 K/mm3 (140-440); Red Blood Count 3.95 M/mm3 (3.65-5.03); Red Cell Distribution Width 14.1 % (13.2-15.2)
--- NOTE | 2018-10-27 10:29 | Discharge Summary ---
Providers - Providers Date of Admission: 10/25/18 23:37 Attending physician: OSEAS BENTLEY MD 10/25/18 23:08 Consult to Physician [CONS] Routine Comment: DR MARTÍN WANG W/DR MENDIETA @[id number] Consulting Provider: PILAR MENDIETA Physician Instructions: Reason For Exam: diverticulitis with abscess 10/25/18 23:36 Consult to Physician [CONS] Routine Comment: Consulting Provider: AC SPRING Physician Instructions: Reason For Exam: bpr 10/26/18 10:09 Consult to Physician [CONS] Routine Comment: Consulting Provider: AARTI OLMOS Physician Instructions: Reason For Exam: diverticulitis. FH colon CA 10/26/18 10:10 Consult to Physician [CONS] Routine Comment: Consulting Provider: GRANT WHITTINGTON Physician Instructions: Reason For Exam: diverticulitis. possible early abscess formation [facility] Condition: Stable Disposition: DC-01 TO HOME OR SELFCARE Core Measure Documentation - Palliative Care Palliative Care/ Comfort Measures: Not Applicable Exam - Constitutional Vitals: Temp Pulse Resp BP Pulse Ox 97.6 F 75 20 106/83 98 10/27/18 08:00 10/27/18 08:00 10/27/18 08:00 10/27/18 08:00 10/27/18 08:00 Plan Activity: advance as tolerated, fall precautions Diet: low fat Wound: per your surgeon's advice [facility] 7 Days AC SPRING MD [Staff Physician] - 7 Days PILAR MENDIETA MD [Staff Physician] - 7 Days Prescriptions: Ciprofloxacin HCl [Ciprofloxacin TAB] 500 mg PO Q12HR #28 tab metroNIDAZOLE [Flagyl TAB] 500 mg PO Q12HR #28 tab
[2018-10-27] MEDS: NACL 0.9% 1000 ML 1,000 ML IV SCH (10:41)
--- NOTE | 2018-10-27 10:46 | Progress Note ---
Assessment and Plan Pt feeling well. without compl. no further pain Abd soft, non tender ID eval noted. GI to follow at out pt attempt cl liq diet this am may advance to full liq in am and possibly d/c if diet felicity RTO wed Selected Entries 10/27/18 08:00 Temperature 97.6 F Pulse Rate 75 Respiratory 20 Rate Blood Pressure 106/83 [Left] Laboratory Tests 10/26/18 10/27/18 04:43 05:10 WBC 10.6 7.7 Hgb 13.3 Hct 39.8 Objective Vital Signs - 12hr 10/27/18 10/27/18 10/27/18 00:05 04:25 07:22 Temperature 97.7 F 97.6 F 97.9 F Pulse Rate 61 97 H 74 Respiratory 20 20 20 Rate Blood Pressure 117/76 106/82 Blood Pressure 125/84 [Left] O2 Sat by Pulse 97 97 98 Oximetry 10/27/18 08:00 Temperature 97.6 F Pulse Rate 75 Respiratory 20 Rate Blood Pressure Blood Pressure 106/83 [Left] O2 Sat by Pulse 98 Oximetry - Labs 10/27/18 05:10 10/26/18 04:43
[2018-10-27] MEDS: MORPHINE IV PRN (13:20)
--- NOTE | 2018-10-27 17:16 | Progress Note ---
Assessment and Plan Assessment and plan: 33-year-old male with a history of hypothyroidism because emergency room with complaints of abdominal pain which has been ongoing over the last 4-5 months. Pain is in the left lower quadrant, sharp, sometimes dull, intensity 7/10, radiating to the scrotum, relieved with pain medication gives a emergency room. He is at nausea vomiting, none today. He is also noted blood in his stool on several occasion with the abdominal pain no NSAID use Acute Diverticulitis BRPR secondary to above Hypothyrodisim SIRS without organ dysfunction secondary to diverticulitis Plan Supportive care Continue abx continue IVF Ok for clear liquid today. Discussed with Surgery and also with the patient about plans of treatment PAIN CONTROL SURGERY, ID, GI input noted DVT/GI PROPHY Discussed with GI and outpatient colonoscopy in 6 weeks to r/o mass or IBD. History Interval history: Patient seen and examined today, report abdominal pain is improving[facility] - Constitutional Vitals: Temp Pulse Resp BP Pulse Ox 97.9 F 72 18 143/79 98 10/27/18 12:00 10/27/18 12:00 10/27/18 12:00 10/27/18 12:00 10/27/18 11:04 General appearance: Present: no acute distress, well-nourished - EENT Eyes: Present: PERRL ENT: hearing intact, clear oral mucosa, dentition normal - Neck Neck: Present: supple, normal ROM - Respiratory Respiratory effort: normal Respiratory: bilateral: CTA - Cardiovascular Rhythm: regular Heart Sounds: Present: S1 & S2. Absent: systolic murmur, diastolic murmur - Extremities Extremities: no ischemia, pulses intact, pulses symmetrical, No edema, normal temperature, normal color, Full ROM Extremity abnormal: edema Peripheral Pulses: within normal limits - Abdominal General gastrointestinal: soft, non-tender, non-distended, normal bowel sounds - Integumentary Integumentary: Present: clear, warm, dry - Psychiatric Psychiatric: appropriate mood/affect, intact judgment & insight, memory intact - Neurologic Neurologic: CNII-XII intact, moves all extremities - Allied Health Allied health notes reviewed: nursing Results - Labs CBC & Chem 7: 10/27/18 05:10 10/26/18 04:43 Labs: Laboratory Last Values WBC 7.7 K/mm3 (4.5-11.0) 10/27/18 05:10 RBC 3.95 M/mm3 (3.65-5.03) 10/27/18 05:10 Hgb 13.3 gm/dl (11.8-15.2) 10/27/18 05:10 Hct 39.8 % (35.5-45.6) 10/27/18 05:10 MCV 101 fl (84-94) H 10/27/18 05:10 MCH 34 pg (28-32) H 10/27/18 05:10 MCHC 33 % (32-34) 10/27/18 05:10 RDW 14.1 % (13.2-15.2) 10/27/18 05:10 Plt Count 216 K/mm3 (140-440) 10/27/18 05:10 Lymph % (Auto) 15.7 % (13.4-35.0) 10/27/18 05:10 Tift % (Auto) 13.1 % (0.0-7.3) H 10/27/18 05:10 Eos % (Auto) 5.5 % (0.0-4.3) H 10/27/18 05:10 Baso % (Auto) 0.4 % (0.0-1.8) 10/27/18 05:10 Lymph # 1.2 K/mm3 (1.2-5.4) 10/27/18 05:10 Tift # 1.0 K/mm3 (0.0-0.8) H 10/27/18 05:10 Eos # 0.4 K/mm3 (0.0-0.4) 10/27/18 05:10 Baso # 0.0 K/mm3 (0.0-0.1) 10/27/18 05:10 Seg Neutrophils % 65.3 % (40.0-70.0) 10/27/18 05:10 Seg Neutrophils # 5.0 K/mm3 (1.8-7.7) 10/27/18 05:10 Sodium 140 mmol/L (137-145) 10/26/18 04:43 Potassium 4.2 mmol/L (3.6-5.0) 10/26/18 04:43 Chloride 102.6 mmol/L (98-107) 10/26/18 04:43 Carbon Dioxide 26 mmol/L (22-30) 10/26/18 04:43 16 mmol/L 10/26/18 04:43 BUN 8 mg/dL (9-20) L 10/26/18 04:43 0.9 mg/dL (0.8-1.5) 10/26/18 04:43 Estimated GFR > 60 ml/min 10/26/18 04:43 9 % 10/26/18 04:43 Glucose 80 mg/dL (75-100) 10/26/18 04:43 Calcium 9.0 mg/dL (8.4-10.2) 10/26/18 04:43 0.70 mg/dL (0.1-1.2) 10/25/18 19:21 AST 19 units/L (5-40) 10/25/18 19:21 ALT 15 units/L (7-56) 10/25/18 19:21 49 units/L (35-129) 10/25/18 19:21 7.6 g/dL (6.3-8.2) 10/25/18 19:21 4.7 g/dL (3.9-5) 10/25/18 19:21 1.6 % 10/25/18 19:21 Yellow (Yellow) 10/25/18 20:35 Clear (Clear) 10/25/18 20:35 6.0 (5.0-7.0) 10/25/18 20:35 Ur Specific [place] 1.025 (1.003-1.030) 10/25/18 20:35 <15 mg/dl mg/dL (Negative) 10/25/18 20:35 Neg mg/dL (Negative) 10/25/18 20:35 Tr mg/dL (Negative) 10/25/18 20:35 Neg (Negative) 10/25/18 20:35 Neg (Negative) 10/25/18 20:35 Neg (Negative) 10/25/18 20:35 4.0 mg/dL (<2.0) 10/25/18 20:35 Ur Leukocyte Esterase Neg (Negative) 10/25/18 20:35 1.0 /HPF (0.0-6.0) 10/25/18 20:35 4.0 /HPF (0.0-6.0) 10/25/18 20:35 Few /HPF 10/25/18 20:35 Active Medications - Current Medications Current Medications: Generic Name Dose Route Start Last Admin Trade Name Freq PRN Reason Stop Dose Admin Acetaminophen 650 mg 10/25/18 23:36 Tylenol PO Q4H PRN Pain MILD(1-3)/Fever >100.5/LAFLEUR Sodium Chloride 1,000 mls @ 150 mls/hr 10/25/18 23:45 10/27/18 10:41 Nacl 0.9% 1000 Ml IV 150 mls/hr DIRECT VIVIAN Administration Piperacillin Sod/Tazobactam Sod 4.5 gm in 100 mls @ 200 mls/hr 10/26/18 06:00 10/27/18 11:36 Zosyn/Ns 4.5gm/100ml IV 200 mls/hr Q6HR VIVIAN Administration Protocol Morphine Sulfate 2 mg 10/25/18 23:36 10/27/18 13:20 Morphine IV 2 mg Q4H PRN Administration Pain, Moderate (4-6) Ondansetron HCl 4 mg 10/25/18 23:36 10/26/18 02:19 Zofran IV 4 mg Q4H PRN Administration Nausea And Vomiting Sodium Chloride 10 ml 10/26/18 10:00 10/27/18 10:42 Sodium Chloride Flush Syringe 10 Ml IV 10 ml BID VIVIAN Administration Sodium Chloride 10 ml 10/25/18 23:36 Sodium Chloride Flush Syringe 10 Ml IV PRN PRN LINE FLUSH
[2018-10-28] MEDS: ZOSYN/NS 4.5GM/100ML 4.5 GM/100 ML VIAL IV SCH ×2 (06:35)
[2018-10-28 08:02] VITALS: BP 125/84
[2018-10-28] MEDS: MORPHINE IV PRN (09:52)
--- NOTE | 2018-10-28 12:51 | Progress Note ---
Assessment and Plan Pt feeling well without compl. felicity full liq diet Abd soft, non tender. surgically stable may d/c today from surg perspective rto wed Selected Entries 10/28/18 07:21 Temperature 97.6 F Pulse Rate 49 L Respiratory 16 Rate Blood Pressure 125/84 Laboratory Tests 10/27/18 05:10 WBC 7.7 Objective Vital Signs - 12hr 10/28/18 10/28/18 04:00 07:21 Temperature 97.8 F 97.6 F Pulse Rate 52 L 49 L Respiratory 20 16 Rate Blood Pressure 128/85 125/84 O2 Sat by Pulse 99 100 Oximetry - Labs 10/27/18 05:10 10/26/18 04:43
--- NOTE | 2018-10-28 12:59 | Progress Note ---
Assessment and Plan Cultures: none A/P: 33 yo M PMHx hypothyroidism admitted with diverticulitis 1. Diverticulitis - clinically improving, tolerating PO, leukocytosis resolved. On zosyn. 2. Hypothyroidism Recs: - continue pip-tazo while inpatient. - ok to discharge from ID standpoint on ciprofloxacin PO 500 mg q12h and metronidazole 500mg q8h until 11/08/2018 - follow up with Dr Orozco on 11/07. Sent to construction scheduler. Discussed with Dr Daysi Cortes MD [facility] ([facility]) Office [phone] Subjective Date of service: 10/28/18 Principal diagnosis: diverticulitis Interval history: Patient feels better, he is able to tolerate clear liquids, wants to eat grits. No fever. No N/V/D or abdominal pain. Objective - Exam Narrative Exam: Constitutional: awake, no distress, following commands Head, Ears, Nose: Normocephalic, atraumatic. External ears, nose normal Eyes: Conjunctivae/corneas clear. No icterus. No ptosis. Neck: Supple, no meningeal signs Oral: fair dentition, moist mucous membranes Cardiovascular: S1, S2 normal. Normal rhythm Respiratory: Good air entry, clear to auscultation bilaterally GI: Soft, non-tender; bowel sounds normal. No peritoneal signs Musculoskeletal: No pedal edema, Skin: No rash or abscess Hem/Lymphatic: No palpable cervical or supraclavicular nodes. No lymphangitis Psych: no agitation Neurological: Moves all extremities, no focal defects - Constitutional Vitals: Vital Signs Temp Pulse Resp BP Pulse Ox 97.6 F 49 L 16 125/84 100 10/28/18 07:21 10/28/18 07:21 10/28/18 07:21 10/28/18 07:21 10/28/18 07:21 Temperature -Last 24 Hours Temperature 97.6 F Temperature 97.8 F Temperature 97.9 F Temperature 98.1 F Temperature 98.4 F Temperature 98.0 F - Labs CBC & Chem 7: 10/27/18 05:10 10/26/18 04:43
--- NOTE | 2018-10-28 13:09 | Discharge Summary ---
Providers - Providers Date of Admission: 10/25/18 23:37 Attending physician: OSEAS BENTLEY MD 10/25/18 23:08 Consult to Physician [CONS] Routine Comment: DR MARTÍN WANG W/DR MENDIETA @[id number] Consulting Provider: PILAR MENDIETA Physician Instructions: Reason For Exam: diverticulitis with abscess 10/25/18 23:36 Consult to Physician [CONS] Routine Comment: Consulting Provider: AC SPRING Physician Instructions: Reason For Exam: bpr 10/26/18 10:09 Consult to Physician [CONS] Routine Comment: Consulting Provider: AARTI OLMOS Physician Instructions: Reason For Exam: diverticulitis. FH colon CA 10/26/18 10:10 Consult to Physician [CONS] Routine Comment: Consulting Provider: GRANT WHITTINGTON Physician Instructions: Reason For Exam: diverticulitis. possible early abscess formation Primary care physician: [facility], MD Hospitalization Reason for admission: abdominal pain Condition: Stable Hospital course: 33-year-old male with a history of hypothyroidism because emergency room with complaints of abdominal pain which has been ongoing over the last 4-5 months. Pain is in the left lower quadrant, sharp, sometimes dull, intensity 7/10, radiating to the scrotum, relieved with pain medication gives a emergency room. He is at nausea vomiting, none today. He is also noted blood in his stool on several occasion with the abdominal pain no NSAID use. Patient was treated with bowel rest was followed by surgery ID and pool coordinator recommendation to gradually decrease in feeding clear liquids and full liquids with the patient tolerated and can progress to GI soft in the a.m. with carbonated drinks this with the splint and the patient verbalized understanding. We'll also discuss w ith the patient the need to follow up with GI outpatient for colonoscopy in 6 weeks to rule out mass or IBD. The patient verbalized understanding and is clinically stable at this time for discharge Acute Diverticulitis BRPR secondary to above Hypothyrodisim SIRS without organ dysfunction secondary to diverticulitis Disposition: DC-01 TO HOME OR SELFCARE Time spent for discharge: 35 MINS Core Measure Documentation - Palliative Care Palliative Care/ Comfort Measures: Not Applicable - Core Measures Any of the following diagnoses?: none Exam - Physical Exam Narrative exam: VITAL SIGNS: Reviewed. GENERAL: The patient appears normally developed, Vital signs as documented. HEAD: No signs of head trauma. EYES: Pupils are equal. Extraocular motions intact. EARS: Hearing grossly intact. MOUTH: Oropharynx is normal. NECK: No adenopathy, no JVD. CHEST: Chest with clear breath sounds bilaterally. No wheezes, rales, or rhonchi. CARDIAC: Regular rate and rhythm. S1 and S2, without murmurs, gallops, or rubs. VASCULAR: No Edema. Peripheral pulses normal and equal in all extremities. ABDOMEN: Soft, non tender and non distended. No rebound or guarding, and no masses palpated. Bowel Sounds normal. MUSCULOSKELETAL: Good range of motion of all major joints. Extremities without clubbing, cyanosis or edema. NEUROLOGIC EXAM: Alert and oriented x 3 No focal sensory or strength deficits. Speech normal. Follows commands. PSYCHIATRIC: Mood normal. SKIN: Visible skin tattoos. - Constitutional Vitals: Temp Pulse Resp BP Pulse Ox 97.6 F 49 L 16 125/84 100 10/28/18 07:21 10/28/18 07:21 10/28/18 07:21 10/28/18 07:21 10/28/18 07:21 Plan Activity: advance as tolerated, fall precautions Diet: other (full liquid diet today and can advance to GI soft in the a.m. and then regular from thereon. High fiber diet) Follow up with: PILAR MENDIETA MD [Staff Physician] - 7 Days AC SPRING MD [Staff Physician] - 7 Days [facility] MD LEONARD [Primary Care Provider] - 7 Days Prescriptions: Ciprofloxacin HCl [Ciprofloxacin TAB] 500 mg PO Q12HR #28 tab metroNIDAZOLE [Flagyl] 500 mg PO Q8HR #42 tablet traMADol [Ultram] 50 mg PO Q6HR PRN #14 tablet PRN Reason: Pain Ondansetron [Zofran Odt] 4 mg PO Q6H #30 tab.[email or web address]
== END 2018-10-28 15:30 | disposition home or self-care (01) | DRG 379 ==
LOC: ED 18:40 → 3B-SURG 23:37
PROVIDERS: ADMIT Internal Medicine; ATTEND Internal Medicine
DX: K57.21 Diverticulitis of large intestine with perforation and abscess with bleeding (principal); E03.9 Hypothyroidism, unspecified; F12.90 Cannabis use, unspecified, uncomplicated; K58.9 Irritable bowel syndrome, unspecified; K59.00 Constipation, unspecified; F17.210 Nicotine dependence, cigarettes, uncomplicated; Z80.0 Family history of malignant neoplasm of digestive organs
CPT/HCPCS: 36415; 74178; 80048; 80053; 81001; 85025; 94760; G0378; J1170; J2270; J2405; J2543; J7030; Q9967

== ENCOUNTER 2018-11-08 02:34 | Inpatient (IN) | payer OTHER ==
--- NOTE | 2018-11-08 03:53 | Emergency Department Report ---
ED Male HPI - General Chief complaint: Abdominal Pain Stated complaint: UNABLE TO USE THE RESTROOM Time Seen by Provider: 11/08/18 03:26 Source: patient, family Mode of arrival: Ambulatory Limitations: No Limitations - History of Present Illness Initial comments: 33-year-old -[place] male with a past medical history of hypothyroidism and recent history of diverticulitis with abscess. Patient was last admitted on 10/25/2018 and discharged on October 28. Patient was placed on Cipro and Zofran, Flagyl and tramadol. Patient comes in today for complaint of rectal pain that started yesterday. Patient also complains of pain and difficulty urinating. Patient's last BM was yesterday. Patient reports that he did not get the tramadol secondary to have a Lortabs from the dentist that he's been taken for pain management. Patient denies any fever. Onset/Timin -: days(s) Radiation: other (rectal pain) Severity scale (0 -10): 5 Improves with: none Worsens with: palpation - Related Data Home Medications Medication Instructions Recorded Confirmed Last Taken Levothyroxine [Synthroid] 75 mcg PO QAM 10/26/18 10/26/18 Unknown Previous Rx's Medication Instructions Recorded Last Taken Type Ciprofloxacin HCl [Ciprofloxacin 500 mg PO Q12HR #28 tab 10/27/18 Unknown Rx TAB] Ondansetron [Zofran Odt] 4 mg PO Q6H #30 tab.rapdis 10/28/18 Unknown Rx metroNIDAZOLE [Flagyl] 500 mg PO Q8HR #42 tablet 10/28/18 Unknown Rx traMADol [Ultram] 50 mg PO Q6HR PRN #14 tablet 10/28/18 Unknown Rx Allergies Allergy/AdvReac Type Severity Reaction Status Date / Time No Known Allergies Allergy Verified 11/08/18 02:39 ED Review of Systems ROS: Stated complaint: UNABLE TO USE THE RESTROOM Other details as noted in HPI Comment: All other systems reviewed and negative ED Past Medical Hx - Past Medical History Previous Medical History?: Yes Additional medical history: Hypothyroidism - Surgical History Past Surgical History?: No - Social History Smoking Status: Current Every Day Smoker Substance Use Type: Marijuana - Medications Home Medications: Home Medications Medication Instructions Recorded Confirmed Last Taken Type Levothyroxine [Synthroid] 75 mcg PO QAM 10/26/18 10/26/18 Unknown History Ciprofloxacin HCl [Ciprofloxacin 500 mg PO Q12HR #28 tab 10/27/18 Unknown Rx TAB] Ondansetron [Zofran Odt] 4 mg PO Q6H #30 tab.rapdis 10/28/18 Unknown Rx metroNIDAZOLE [Flagyl] 500 mg PO Q8HR #42 tablet 10/28/18 Unknown Rx traMADol [Ultram] 50 mg PO Q6HR PRN #14 tablet 10/28/18 Unknown Rx ED Physical Exam - General Limitations: No Limitations ED Course Vital Signs 11/08/18 02:41 Temperature 98.0 F Pulse Rate 77 Respiratory 18 Rate Blood Pressure 137/87 O2 Sat by Pulse 99 Oximetry Critical care attestation.: If time is entered above; I have spent that time in minutes in the direct care of this critically ill patient, excluding procedure time. ED Disposition Condition: Stable Referrals: MIKEL BLANCO MD [Primary Care Provider] - 3-5 Days
[2018-11-08 03:58] LABS: Basophils # (Auto) 0.1 K/mm3 (0.0-0.1); Basophils % (Auto) 0.5 % (0.0-1.8); Eosinophils # (Auto) 0.3 K/mm3 (0.0-0.4); Eosinophils % (Auto) 2.3 % (0.0-4.3); Hemoglobin 14.2 gm/dl (11.8-15.2); Lymphocytes # (Auto) 1.4 K/mm3 (1.2-5.4); Lymphocytes % (Auto) 10.4 % (13.4-35.0); Mean Corpuscular HGB Conc 34 % (32-34); Mean Corpuscular Volume 99 fl (84-94); Monocytes # (Auto) 1.6 K/mm3 (0.0-0.8); Monocytes % (Auto) 11.3 % (0.0-7.3); Platelet Count 226 K/mm3 (140-440); Red Blood Count 4.23 M/mm3 (3.65-5.03); Red Cell Distribution Width 14.4 % (13.2-15.2)
[2018-11-08] MEDS ORDERED: NACL 0.9% 1000 ML 1,000 ML IV ONE (04:01)
[2018-11-08] MEDS ORDERED: MORPHINE IM ONE (04:01)
[2018-11-08 04:11] LABS: Alanine Aminotransferase 18 units/L (7-56); Albumin 3.9 g/dL (3.9-5); BUN/Creatinine Ratio 8; Blood Urea Nitrogen 7 mg/dL (9-20); Calcium 9.1 mg/dL (8.4-10.2); Hemolysis Index 3
[2018-11-08 05:09] LABS: Bilirubin,Urine NEG (Negative); Blood,Urine NEG (Negative); Color,Urine Yellow (Yellow); Protein,Urine <15 mg/dL mg/dL (Negative); Urobilinogen,Urine < 2.0 mg/dL (<2.0)
--- NOTE | 2018-11-08 05:36 | Cat Scan Report ---
CT the abdomen and pelvis with intravenous contrast INDICATION / CLINICAL INFORMATION: Abdominal and rectal pain. TECHNIQUE: The patient received 100 cc Omnipaque [address] scans at this location are performed using CT dose reduction for ALARA by means of automated exposure control. COMPARISON: 10/25/2018. FINDINGS: ABDOMEN: The liver, spleen, gallbladder, bile ducts, pancreas, adrenal glands, kidneys and bowel demo nstrate no significant abnormality. No adenopathy is seen. The lung bases are clear. PELVIS: Changes of proximal sigmoid diverticulitis are again identified. Small intramural abscess is again noted. Prominent inflammatory change in the pericolonic fat and sigmoid mesocolon has shown mil d increase. I see no evidence of bowel obstruction, free air or drainable fluid collection. No new ab normality is seen in the pelvis. No abnormality is seen in the anorectal region. IMPRESSION: Changes of acute sigmoid diverticulitis are again identified and have shown mild progress ion. No drainable fluid collection is seen. Signer Name: Bandar Harp MD Signed: 11/08/2018 5:31 AM Workstation Name: [id number]
[2018-11-08] MEDS ORDERED: MORPHINE IV ONE (06:14)
[2018-11-08] MEDS ORDERED: MORPHINE ONE (09:00)
--- NOTE | 2018-11-08 11:22 | Gastroenterology Consultation ---
<ALTAGRACIA ABARCA - Last Filed: 11/08/18 11:45> History of Present Illness - Reason for Consult Consult date: 11/08/18 diverticulitis Requesting physician: CINTHYA MUNOZ - History of Present Illness Patient is a 33 y/o male with PMH of hypothyroidism who is previously known to our service from a recent consult earlier this month on 10/26/18 for acute diverticulitis who presented to ED with recurrent LLQ abdominal pain and repeat abd CT showing again sigmoid diverticulitis with mild progression and small intramural abscess (not able to drain). This morning patient was resting in bed w/o acute distress and family at bedside. He reports being compliant with taking antibiotics at home (Cipro/flagyl). States his abd pain improved upon discharge on 10/28 but returned over the last couple of days. States he has had some recent constipation after taking Lortabs given from dentist for jaw/mouth pain due to current infected tooth. Last BM was 2 days ago with non-bloody stool. Denies fever, CP, SOB, N/V, signs of bleeding, or diarrhea. Weight has been stable. No hx or Fhx of IBD. Has a Fhx of colon CA with uncles. No previous colonoscopy but has an outpatient appoint already scheduled in our clinic to schedule procedure. Past History Past Medical History: hypothyroidism, other (diverticulitis) Past Surgical History: No surgical history Social history: smoking, other (marijuana) Family history: diabetes, hypertension, other (colon CA (uncles)) Medications and Allergies Allergies Allergy/AdvReac Type Severity Reaction Status Date / Time No Known Allergies Allergy Verified 11/08/18 02:39 Home Medications Medication Instructions Recorded Confirmed Last Taken Type Levothyroxine [Synthroid] 75 mcg PO QAM 10/26/18 10/26/18 Unknown History Ciprofloxacin HCl [Ciprofloxacin 500 mg PO Q12HR #28 tab 10/27/18 Unknown Rx TAB] metroNIDAZOLE [Flagyl] 500 mg PO Q8HR #42 tablet 10/28/18 Unknown Rx Active Meds: medications reviewed/updated as required Review of Systems - Review of Systems All systems: negative Gastrointestinal: abdominal pain Exam - Constitutional Vital Signs: Temp Pulse Resp BP Pulse Ox 97.8 F 74 20 147/94 99 11/08/18 09:47 11/08/18 09:47 11/08/18 09:47 11/08/18 09:47 11/08/18 09:47 General appearance: no acute distress - Respiratory Respiratory effort: normal - Cardiovascular Rhythm: regular - Gastrointestinal General gastrointestinal: Present: soft, tender (slight TTP in LLQ), non- distended, normal bowel sounds - Neurologic Neurological: alert and oriented x3 - Labs CBC & Chem 7: 11/08/18 03:19 11/08/18 03:19 Lab Results: Laboratory Results - last 24 hr 11/08/18 11/08/18 11/08/18 03:19 03:19 04:16 WBC 14.0 H RBC 4.23 Hgb 14.2 Hct 42.0 MCV 99 H MCH 34 H MCHC 34 RDW 14.4 Plt Count 226 Lymph % (Auto) 10.4 L Ness % (Auto) 11.3 H Eos % (Auto) 2.3 Baso % (Auto) 0.5 Lymph # 1.4 Ness # 1.6 H Eos # 0.3 Baso # 0.1 Seg Neutrophils % 75.5 H Seg Neutrophils # 10.5 H Sodium 137 Potassium 4.2 Chloride 97.8 L Carbon Dioxide 30 Anion Gap 13 BUN 7 L Creatinine 0.9 Estimated GFR > 60 BUN/Creatinine Ratio 8 Glucose 97 Lactic Acid 0.60 L Calcium 9.1 Total Bilirubin 0.60 AST 14 ALT 18 Alkaline Phosphatase 39 Total Protein 6.2 L Albumin 3.9 Albumin/Globulin Ratio 1.7 Urine Color Urine Turbidity Urine pH Ur Specific [place] Urine Protein Urine Glucose (UA) Urine Ketones Urine Blood Urine Nitrite Urine Bilirubin Urine Urobilinogen Ur Leukocyte Esterase Urine WBC (Auto) Urine RBC (Auto) 11/08/18 04:22 WBC RBC Hgb Hct MCV MCH MCHC RDW Plt Count Lymph % (Auto) Ness % (Auto) Eos % (Auto) Baso % (Auto) Lymph # Ness # Eos # Baso # Seg Neutrophils % Seg Neutrophils # Sodium Potassium Chloride Carbon Dioxide Anion Gap BUN Creatinine Estimated GFR BUN/Creatinine Ratio Glucose Lactic Acid Calcium Total Bilirubin AST ALT Alkaline Phosphatase Total Protein Albumin Albumin/Globulin Ratio Urine Color Yellow Urine Turbidity Clear Urine pH 5.0 Ur Specific [place] 1.016 Urine Protein <15 mg/dl Urine Glucose (UA) Neg Urine Ketones Neg Urine Blood Neg Urine Nitrite Neg Urine Bilirubin Neg Urine Urobilinogen < 2.0 Ur Leukocyte Esterase Tr Urine WBC (Auto) 1.0 Urine RBC (Auto) 1.0 Assessment and Plan 1.acute diverticulitis (unresolved despite antibiotics; initial episode earlier this month) -afebrile -WBC 14.0 -H/H WNL (14.2/42.0)- no active signs of bleeding -repeat abd CT showed again sigmoid diverticulitis with mild progression and a small sigmoid intramural abscess (not drainable) -clinically, patient is stable. Abdomen benign upon exam. No N/v. Last BM 2 days ago with non-bloody stool (recent constipation 2/2 narcotics for jaw pain due to current infected tooth) -ID consult pending -continue antibiotics per ID recommendations and supportive care -patient will need outpatient colonoscopy in ~4 weeks after resolution of acute process (r/o IBD, neoplasm, etc.; discussed with pt-f/u clinic appt already scheduled) -recommend surgery consult for evaluation of possible surgical intervention and further management -will sign off, please call if needed <CECE NICHOLSON - Last Filed: 11/08/18 13:56> Medications and Allergies Active Meds: Active Medications Acetaminophen (Tylenol) 650 mg PO Q4H PRN PRN Reason: Pain MILD(1-3)/Fever >100.5/LAFLEUR Docusate Sodium (Colace) 100 mg PO BID [facility] Enoxaparin Sodium (Lovenox) 40 mg SUB-Q QDAY [facility] Sodium Chloride (Nacl 0.9% 1000 Ml) 1,000 mls @ 75 mls/hr IV DIRECT VIVIAN Last Admin: 11/08/18 12:12 Dose: 75 mls/hr Documented by: Levofloxacin/Dextrose (Levaquin 750mg/150ml) 750 mg in 150 mls @ 100 mls/hr IV Q24HR VIVIAN; Protocol Last Admin: 11/08/18 12:24 Dose: 100 mls/hr Documented by: Metronidazole (Flagyl 500 Mg/100 Ml) 500 mg in 100 mls @ 100 mls/hr IV Q8HR VIVIAN; Protocol Ondansetron HCl (Zofran) 4 mg IV Q8H PRN PRN Reason: Nausea And Vomiting Oxycodone/Acetaminophen (Percocet 5/325) 1 tab PO Q6H PRN PRN Reason: Pain, Moderate (4-6) Sodium Chloride (Sodium Chloride Flush Syringe 10 Ml) 10 ml IV BID [facility] Sodium Chloride (Sodium Chloride Flush Syringe 10 Ml) 10 ml IV PRN PRN PRN Reason: LINE FLUSH Exam - Constitutional Vital Signs: Temp Pulse Resp BP Pulse Ox 98.4 F 77 18 140/93 97 11/08/18 12:01 11/08/18 12:01 11/08/18 12:01 11/08/18 12:01 11/08/18 12:01 - Labs CBC & Chem 7: 11/08/18 03:19 11/08/18 03:19 Lab Results: Laboratory Results - last 24 hr 11/08/18 11/08/18 11/08/18 03:19 03:19 04:16 WBC 14.0 H RBC 4.23 Hgb 14.2 Hct 42.0 MCV 99 H MCH 34 H MCHC 34 RDW 14.4 Plt Count 226 Lymph % (Auto) 10.4 L Ness % (Auto) 11.3 H Eos % (Auto) 2.3 Baso % (Auto) 0.5 Lymph # 1.4 Ness # 1.6 H Eos # 0.3 Baso # 0.1 Seg Neutrophils % 75.5 H Seg Neutrophils # 10.5 H Sodium 137 Potassium 4.2 Chloride 97.8 L Carbon Dioxide 30 Anion Gap 13 BUN 7 L Creatinine 0.9 Estimated GFR > 60 BUN/Creatinine Ratio 8 Glucose 97 Lactic Acid 0.60 L Calcium 9.1 Total Bilirubin 0.60 AST 14 ALT 18 Alkaline Phosphatase 39 Total Protein 6.2 L Albumin 3.9 Albumin/Globulin Ratio 1.7 Urine Color Urine Turbidity Urine pH Ur Specific [place] Urine Protein Urine Glucose (UA) Urine Ketones Urine Blood Urine Nitrite Urine Bilirubin Urine Urobilinogen Ur Leukocyte Esterase Urine WBC (Auto) Urine RBC (Auto) 11/08/18 04:22 WBC RBC Hgb Hct MCV MCH MCHC RDW Plt Count Lymph % (Auto) Ness % (Auto) Eos % (Auto) Baso % (Auto) Lymph # Ness # Eos # Baso # Seg Neutrophils % Seg Neutrophils # Sodium Potassium Chloride Carbon Dioxide Anion Gap BUN Creatinine Estimated GFR BUN/Creatinine Ratio Glucose Lactic Acid Calcium Total Bilirubin AST ALT Alkaline Phosphatase Total Protein Albumin Albumin/Globulin Ratio Urine Color Yellow Urine Turbidity Clear Urine pH 5.0 Ur Specific [place] 1.016 Urine Protein <15 mg/dl Urine Glucose (UA) Neg Urine Ketones Neg Urine Blood Neg Urine Nitrite Neg Urine Bilirubin Neg Urine Urobilinogen < 2.0 Ur Leukocyte Esterase Tr Urine WBC (Auto) 1.0 Urine RBC (Auto) 1.0 Assessment and Plan Patient seen and examined. Agree with note above. Colonoscopy as outpatient once diverticulitis resolves as above. Recommend surgery eval given progression of acute diverticulitis despite abx. Will sign off, please call as needed.
--- NOTE | 2018-11-08 11:39 | History and Physical Report ---
History of Present Illness Date of examination: 11/08/18 Date of admission: 11/08/18 06:11 Chief complaint: abd pain History of present illness: Patient is a 33 y/o male with PMH of hypothyroidism who was recently admitted earlier this month on 10/26/18 for acute diverticulitis after presenting to ED with abdominal pain. Patient continues to have recurrent LLQ abdominal pain with repeat abd CT showing again sigmoid diverticulitis with mild progression and small intramural abscess (not able to drain). The patient denies any fever or chills. He reports being compliant with taking antibiotics at home (Cipro/flagyl). He states his abd pain improved upon discharge but has worsened over the past few days prompting his visit to the emergency room. No nausea or vomiting. Past History Past Medical History: hypothyroidism, other (diverticulitis) Past Surgical History: No surgical history Social history: smoking Family history: no significant family history Medications and Allergies Allergies Allergy/AdvReac Type Severity Reaction Status Date / Time No Known Allergies Allergy Verified 11/08/18 02:39 Home Medications Medication Instructions Recorded Confirmed Last Taken Type Levothyroxine [Synthroid] 75 mcg PO QAM 10/26/18 10/26/18 Unknown History Ciprofloxacin HCl [Ciprofloxacin 500 mg PO Q12HR #28 tab 10/27/18 Unknown Rx TAB] metroNIDAZOLE [Flagyl] 500 mg PO Q8HR #42 tablet 10/28/18 Unknown Rx Review of Systems All systems: negative Exam - Constitutional Vitals: Temp Pulse Resp BP Pulse Ox 97.8 F 74 20 147/94 99 11/08/18 09:47 11/08/18 09:47 11/08/18 09:47 11/08/18 09:47 11/08/18 09:47 General appearance: Present: no acute distress, well-nourished - EENT Eyes: Present: PERRL ENT: hearing intact, clear oral mucosa - Neck Neck: Present: supple, normal ROM - Respiratory Respiratory effort: normal Respiratory: bilateral: CTA - Cardiovascular Heart Sounds: Present: S1 & S2. Absent: rub, click - Extremities Extremities: pulses symmetrical, No edema Peripheral Pulses: within normal limits - Abdominal General gastrointestinal: Present: soft, tender, non-distended, normal bowel sounds Localized gastrointestinal: tender: LLQ (mild) Male genitourinary: Present: normal - Integumentary Integumentary: Present: clear, warm, dry - Musculoskeletal Musculoskeletal: gait normal, strength equal bilaterally - Psychiatric Psychiatric: appropriate mood/affect, intact judgment & insight - Neurologic Neurologic: CNII-XII intact, moves all extremities Results - Labs CBC & Chem 7: 11/08/18 03:19 11/08/18 03:19 Labs: Laboratory Last Values WBC 14.0 K/mm3 (4.5-11.0) H 11/08/18 03:19 RBC 4.23 M/mm3 (3.65-5.03) 11/08/18 03:19 Hgb 14.2 gm/dl (11.8-15.2) 11/08/18 03:19 Hct 42.0 % (35.5-45.6) 11/08/18 03:19 MCV 99 fl (84-94) H 11/08/18 03:19 MCH 34 pg (28-32) H 11/08/18 03:19 MCHC 34 % (32-34) 11/08/18 03:19 RDW 14.4 % (13.2-15.2) 11/08/18 03:19 Plt Count 226 K/mm3 (140-440) 11/08/18 03:19 Lymph % (Auto) 10.4 % (13.4-35.0) L 11/08/18 03:19 [place] % (Auto) 11.3 % (0.0-7.3) H 11/08/18 03:19 Eos % (Auto) 2.3 % (0.0-4.3) 11/08/18 03:19 Baso % (Auto) 0.5 % (0.0-1.8) 11/08/18 03:19 Lymph # 1.4 K/mm3 (1.2-5.4) 11/08/18 03:19 [place] # 1.6 K/mm3 (0.0-0.8) H 11/08/18 03:19 Eos # 0.3 K/mm3 (0.0-0.4) 11/08/18 03:19 Baso # 0.1 K/mm3 (0.0-0.1) 11/08/18 03:19 Seg Neutrophils % 75.5 % (40.0-70.0) H 11/08/18 03:19 Seg Neutrophils # 10.5 K/mm3 (1.8-7.7) H 11/08/18 03:19 Sodium 137 mmol/L (137-145) 11/08/18 03:19 Potassium 4.2 mmol/L (3.6-5.0) 11/08/18 03:19 Chloride 97.8 mmol/L (98-107) L 11/08/18 03:19 Carbon Dioxide 30 mmol/L (22-30) 11/08/18 03:19 13 mmol/L 11/08/18 03:19 BUN 7 mg/dL (9-20) L 11/08/18 03:19 0.9 mg/dL (0.8-1.5) 11/08/18 03:19 Estimated GFR > 60 ml/min 11/08/18 03:19 8 % 11/08/18 03:19 Glucose 97 mg/dL (75-100) 11/08/18 03:19 Lactic Acid 0.60 mmol/L (0.7-2.0) L 11/08/18 04:16 Calcium 9.1 mg/dL (8.4-10.2) 11/08/18 03:19 0.60 mg/dL (0.1-1.2) 11/08/18 03:19 AST 14 units/L (5-40) 11/08/18 03:19 ALT 18 units/L (7-56) 11/08/18 03:19 39 units/L (35-129) 11/08/18 03:19 6.2 g/dL (6.3-8.2) L 11/08/18 03:19 3.9 g/dL (3.9-5) 11/08/18 03:19 1.7 % 11/08/18 03:19 Yellow (Yellow) 11/08/18 04:22 Clear (Clear) 11/08/18 04:22 5.0 (5.0-7.0) 11/08/18 04:22 Ur Specific [place] 1.016 (1.003-1.030) 11/08/18 04:22 <15 mg/dl mg/dL (Negative) 11/08/18 04:22 Neg mg/dL (Negative) 11/08/18 04:22 Neg mg/dL (Negative) 11/08/18 04:22 Neg (Negative) 11/08/18 04:22 Neg (Negative) 11/08/18 04:22 Neg (Negative) 11/08/18 04:22 < 2.0 mg/dL (<2.0) 11/08/18 04:22 Ur Leukocyte Esterase Tr (Negative) 11/08/18 04:22 1.0 /HPF (0.0-6.0) 11/08/18 04:22 1.0 /HPF (0.0-6.0) 11/08/18 04:22 Assessment and Plan Assessment and plan: Acute diverticulitis. Continue with IV antibiotics and consider ID consultation. GI consult. Continue supportive care and pain control. SIRS. Etiology secondary to above. Hypothyroidism. Check TSH level
[2018-11-08] MEDS ORDERED: SODIUM CHLORIDE FLUSH SYRINGE 10 ML IV PRN (11:40)
[2018-11-08] MEDS ORDERED: ZOFRAN IV PRN (11:40)
[2018-11-08] MEDS ORDERED: TYLENOL PO PRN (11:40)
[2018-11-08] MEDS: NACL 0.9% 1000 ML 1,000 ML IV SCH (12:12)
[2018-11-08] MEDS: LEVAQUIN 750MG/150ML 750 MG/150 ML BAG IV SCH (12:24)
[2018-11-08] MEDS: PERCOCET 5/325 PO PRN (14:41)
[2018-11-08] MEDS: FLAGYL 500 MG/100 ML 500 MG/100 ML BAG IV SCH ×2 (14:42→21:38)
[2018-11-08] MEDS: COLACE PO SCH (21:37)
[2018-11-09] MEDS: NACL 0.9% 1000 ML 1,000 ML IV SCH ×2 (04:51→23:03)
[2018-11-09 04:55] LABS: Basophils % (Auto) 0.5 % (0.0-1.8); Eosinophils # (Auto) 0.2 K/mm3 (0.0-0.4); Eosinophils % (Auto) 2.9 % (0.0-4.3); Hematocrit 41.6 % (35.5-45.6); Hemoglobin 13.9 gm/dl (11.8-15.2); Lymphocytes # (Auto) 1.3 K/mm3 (1.2-5.4); Lymphocytes % (Auto) 15.5 % (13.4-35.0); Mean Corpuscular HGB Conc 34 % (32-34); Mean Corpuscular Volume 100 fl (84-94); Monocytes # (Auto) 1.1 K/mm3 (0.0-0.8); Monocytes % (Auto) 12.8 % (0.0-7.3); Platelet Count 230 K/mm3 (140-440); Red Blood Count 4.18 M/mm3 (3.65-5.03); Red Cell Distribution Width 14.1 % (13.2-15.2)
[2018-11-09] MEDS: SODIUM CHLORIDE FLUSH SYRINGE 10 ML IV SCH ×3 (04:57→21:35)
[2018-11-09] MEDS: PERCOCET 5/325 PO PRN ×2 (04:57→21:39)
[2018-11-09] MEDS: FLAGYL 500 MG/100 ML 500 MG/100 ML BAG IV SCH ×3 (05:01→21:36)
[2018-11-09 05:15] LABS: BUN/Creatinine Ratio 8; Blood Urea Nitrogen 6 mg/dL (9-20); Calcium 9.1 mg/dL (8.4-10.2); Hemolysis Index 5
[2018-11-09] MEDS: LOVENOX SUB-Q SCH (10:00)
[2018-11-09] MEDS: COLACE PO SCH ×2 (10:00→21:36)
[2018-11-09] MEDS: LEVAQUIN 750MG/150ML 750 MG/150 ML BAG IV SCH (10:43)
--- NOTE | 2018-11-09 12:38 | Progress Note ---
Assessment and Plan Assessment and plan: Acute diverticulitis. Continue with IV antibiotics and surgery consultation. GI following. Await ID consultation. Continue supportive care and pain control. SIRS. Etiology secondary to above. Hypothyroidism. Check TSH level History Interval history: No new issues overnight Hospitalist Physical - Constitutional Vitals: Temp Pulse Resp BP Pulse Ox 97.9 F 72 18 139/96 97 11/09/18 04:54 11/09/18 04:54 11/09/18 04:54 11/09/18 04:54 11/09/18 04:54 General appearance: Present: no acute distress, well-nourished - EENT Eyes: Present: PERRL, EOM intact ENT: hearing intact, clear oral mucosa, dentition normal - Neck Neck: Present: supple, normal ROM - Respiratory Respiratory effort: normal Respiratory: bilateral: CTA - Cardiovascular Rhythm: regular Heart Sounds: Present: S1 & S2. Absent: gallop, rub - Extremities Extremities: no ischemia, No edema, Full ROM - Abdominal General gastrointestinal: soft, non-tender, non-distended, normal bowel sounds - Integumentary Integumentary: Present: clear, warm, dry - Neurologic Neurologic: CNII-XII intact, moves all extremities Results - Labs CBC & Chem 7: 11/09/18 04:32 11/09/18 04:32 Labs: Laboratory Last Values WBC 8.5 K/mm3 (4.5-11.0) 11/09/18 04:32 RBC 4.18 M/mm3 (3.65-5.03) 11/09/18 04:32 Hgb 13.9 gm/dl (11.8-15.2) 11/09/18 04:32 Hct 41.6 % (35.5-45.6) 11/09/18 04:32 MCV 100 fl (84-94) H 11/09/18 04:32 MCH 33 pg (28-32) H 11/09/18 04:32 MCHC 34 % (32-34) 11/09/18 04:32 RDW 14.1 % (13.2-15.2) 11/09/18 04:32 Plt Count 230 K/mm3 (140-440) 11/09/18 04:32 Lymph % (Auto) 15.5 % (13.4-35.0) 11/09/18 04:32 [place] % (Auto) 12.8 % (0.0-7.3) H 11/09/18 04:32 Eos % (Auto) 2.9 % (0.0-4.3) 11/09/18 04:32 Baso % (Auto) 0.5 % (0.0-1.8) 11/09/18 04:32 Lymph # 1.3 K/mm3 (1.2-5.4) 11/09/18 04:32 [place] # 1.1 K/mm3 (0.0-0.8) H 11/09/18 04:32 Eos # 0.2 K/mm3 (0.0-0.4) 11/09/18 04:32 Baso # 0.0 K/mm3 (0.0-0.1) 11/09/18 04:32 Seg Neutrophils % 68.3 % (40.0-70.0) 11/09/18 04:32 Seg Neutrophils # 5.8 K/mm3 (1.8-7.7) 11/09/18 04:32 Sodium 137 mmol/L (137-145) 11/09/18 04:32 Potassium 4.2 mmol/L (3.6-5.0) 11/09/18 04:32 Chloride 100.5 mmol/L (98-107) 11/09/18 04:32 Carbon Dioxide 26 mmol/L (22-30) 11/09/18 04:32 15 mmol/L 11/09/18 04:32 BUN 6 mg/dL (9-20) L 11/09/18 04:32 0.8 mg/dL (0.8-1.5) 11/09/18 04:32 Estimated GFR > 60 ml/min 11/09/18 04:32 8 % 11/09/18 04:32 Glucose 74 mg/dL (75-100) L 11/09/18 04:32 Lactic Acid 0.60 mmol/L (0.7-2.0) L 11/08/18 04:16 Calcium 9.1 mg/dL (8.4-10.2) 11/09/18 04:32 0.60 mg/dL (0.1-1.2) 11/08/18 03:19 AST 14 units/L (5-40) 11/08/18 03:19 ALT 18 units/L (7-56) 11/08/18 03:19 39 units/L (35-129) 11/08/18 03:19 6.2 g/dL (6.3-8.2) L 11/08/18 03:19 3.9 g/dL (3.9-5) 11/08/18 03:19 1.7 % 11/08/18 03:19 Yellow (Yellow) 11/08/18 04:22 Clear (Clear) 11/08/18 04:22 5.0 (5.0-7.0) 11/08/18 04:22 Ur Specific [place] 1.016 (1.003-1.030) 11/08/18 04:22 <15 mg/dl mg/dL (Negative) 11/08/18 04:22 Neg mg/dL (Negative) 11/08/18 04:22 Neg mg/dL (Negative) 11/08/18 04:22 Neg (Negative) 11/08/18 04:22 Neg (Negative) 11/08/18 04:22 Neg (Negative) 11/08/18 04:22 < 2.0 mg/dL (<2.0) 11/08/18 04:22 Ur Leukocyte Esterase Tr (Negative) 11/08/18 04:22 1.0 /HPF (0.0-6.0) 11/08/18 04:22 1.0 /HPF (0.0-6.0) 11/08/18 04:22 Active Medications - Current Medications Current Medications: Generic Name Dose Route Start Last Admin Trade Name Azar PRN Reason Stop Dose Admin Acetaminophen 650 mg 11/08/18 11:40 Tylenol PO Q4H PRN Pain MILD(1-3)/Fever >100.5/LAFLEUR Docusate Sodium 100 mg 11/08/18 22:00 11/08/18 21:37 Colace PO 100 mg BID VIVIAN Administration Enoxaparin Sodium 40 mg 11/09/18 10:00 Lovenox SUB-Q QDAY VIVIAN Sodium Chloride 1,000 mls @ 75 mls/hr 11/08/18 12:00 11/09/18 04:51 Nacl 0.9% 1000 Ml IV 75 mls/hr DIRECT VIVIAN Administration Levofloxacin/Dextrose 750 mg in 150 mls @ 100 mls/hr 11/08/18 12:00 11/09/18 10:43 Levaquin 750mg/150ml IV 100 mls/hr Q24HR VIVIAN Administration Protocol Metronidazole 500 mg in 100 mls @ 100 mls/hr 11/08/18 14:00 11/09/18 05:01 Flagyl 500 Mg/100 Ml IV 100 mls/hr Q8HR VIVIAN Administration Protocol Ondansetron HCl 4 mg 11/08/18 11:40 Zofran IV Q8H PRN Nausea And Vomiting Oxycodone/Acetaminophen 1 tab 11/08/18 11:40 11/09/18 04:57 Percocet 5/325 PO 1 tab Q6H PRN Administration Pain, Moderate (4-6) Sodium Chloride 10 ml 11/08/18 22:00 11/09/18 10:48 Sodium Chloride Flush Syringe 10 Ml IV 10 ml BID VIVIAN Administration Sodium Chloride 10 ml 11/08/18 11:40 Sodium Chloride Flush Syringe 10 Ml IV PRN PRN LINE FLUSH
--- NOTE | 2018-11-09 13:54 | Progress Note ---
Assessment and Plan Fulll consult dictated: Pt known to me. admitted few weeks prior secondary to diverticulitis. Returns now with cc of lower abd pain but "feeling much better now" CT - recurrent episode of diverticulitis Abd soft, non tender at present. imp - as above rec NPO IV antibiotics will follow 11/08/18 06:11 Chief complaint: abd pain History of present illness: Patient is a 33 y/o male with PMH of hypothyroidism who was recently admitted earlier this month on 10/26/18 for acute diverticulitis after presenting to ED with abdominal pain. Patient continues to have recurrent LLQ abdominal pain with repeat abd CT showing again sigmoid diverticulitis with mild progression and small intramural abscess (not able to drain). The patient denies any fever or chills. He reports being compliant with taking antibiotics at home (Cipro/flagyl). He states his abd pain improved upon discharge but has worsened over the past few days prompting his visit to the emergency room. No nausea or vomiting. Past History Past Medical History: hypothyroidism, other (diverticulitis) Past Surgical History: No surgical history Social history: smoking Family history: no significant family history Selected Entries 11/09/18 04:54 Temperature 97.9 F Pulse Rate 72 Respiratory 18 Rate Blood Pressure 139/96 Laboratory Tests 11/09/18 04:32 WBC 8.5 Hgb 13.9 Hct 41.6 Objective Vital Signs - 12hr 11/09/18 04:54 Temperature 97.9 F Pulse Rate 72 Respiratory 18 Rate Blood Pressure 139/96 O2 Sat by Pulse 97 Oximetry - Labs 11/09/18 04:32 11/09/18 04:32 Diabetes panel 11/09/18 Range/Units 04:32 Sodium 137 (137-145) mmol/L Potassium 4.2 (3.6-5.0) mmol/L Chloride 100.5 (98-107) mmol/L Carbon Dioxide 26 (22-30) mmol/L BUN 6 L (9-20) mg/dL Creatinine 0.8 (0.8-1.5) mg/dL Glucose 74 L (75-100) mg/dL Calcium 9.1 (8.4-10.2) mg/dL Calcium panel 11/09/18 Range/Units 04:32 Calcium 9.1 (8.4-10.2) mg/dL Pituitary panel 11/09/18 Range/Units 04:32 Sodium 137 (137-145) mmol/L Potassium 4.2 (3.6-5.0) mmol/L Chloride 100.5 (98-107) mmol/L Carbon Dioxide 26 (22-30) mmol/L BUN 6 L (9-20) mg/dL Creatinine 0.8 (0.8-1.5) mg/dL Glucose 74 L (75-100) mg/dL Calcium 9.1 (8.4-10.2) mg/dL Adrenal panel 11/09/18 Range/Units 04:32 Sodium 137 (137-145) mmol/L Potassium 4.2 (3.6-5.0) mmol/L Chloride 100.5 (98-107) mmol/L Carbon Dioxide 26 (22-30) mmol/L BUN 6 L (9-20) mg/dL Creatinine 0.8 (0.8-1.5) mg/dL Glucose 74 L (75-100) mg/dL Calcium 9.1 (8.4-10.2) mg/dL
--- NOTE | 2018-11-09 14:38 | Consultation ---
History of Present Illness - Reason for Consult Consult date: 11/09/18 Diverticulitis Requesting physician: PILAR MENDIETA - History of Present Illness The patient is a 33-year-old male with history of hypothyroidism who recently was admitted to the hospital with acute diverticulitis, was discharged on oral ciprofloxacin and Flagyl return to the emergency room yesterday with complaints of left lower quadrant abdominal pain. Repeat CT scan in the emergency room again showed the presence of sigmoid diverticulitis with mild progression and intramural abscess. Infectious diseases was consulted for antibiotic recommendations. Patient states that he only took Flagyl at home did not take any other antibiotic. He also reports having some subjective fevers and sweati ng. Denies any diarrhea. Smokes cigarettes and marijuana. Rare alcohol use. Review of Systems: General: Subjective fever with sweating HEENT: no new visual disturbance Respiratory: No cough, sputum, hemoptysis or shortness of breath Cardiovascular: No chest pain, syncope Gastrointestinal: No nausea, vomiting or diarrhea Genitourinary: No dysuria or hematuria Musculoskeletal: No new or worsening neck pain or back pain Neurologic: No headaches, seizures Hematologic: No easy bruising or bleeding Endocrine: no heat/cold intolerance, no acute weight loss Skin: negative for rash, jaundice Psychiatric: No suicidal or homicidal ideation Past History Past Medical History: hypothyroidism, other (diverticulitis) Past Surgical History: No surgical history Social history: smoking, other (marijuana) Family history: diabetes, hypertension, other (colon CA (uncles)) Medications and Allergies Allergies Allergy/AdvReac Type Severity Reaction Status Date / Time No Known Allergies Allergy Verified 11/08/18 02:39 Home Medications Medication Instructions Recorded Confirmed Last Taken Type Levothyroxine [Synthroid] 75 mcg PO QAM 10/26/18 11/08/18 Unknown History Ciprofloxacin HCl [Ciprofloxacin 500 mg PO Q12HR #28 tab 10/27/18 11/08/18 11/07/18 Rx TAB] 500 mg metroNIDAZOLE [Flagyl] 500 mg PO Q8HR #42 tablet 10/28/18 11/08/18 11/07/18 Rx 500 mg Active Meds: Active Medications Acetaminophen (Tylenol) 650 mg PO Q4H PRN PRN Reason: Pain MILD(1-3)/Fever >100.5/ALFLEUR Docusate Sodium (Colace) 100 mg PO BID VIVIAN Last Admin: 11/08/18 21:37 Dose: 100 mg Documented by: Enoxaparin Sodium (Lovenox) 40 mg SUB-Q QDAY VIVIAN Sodium Chloride (Nacl 0.9% 1000 Ml) 1,000 mls @ 75 mls/hr IV DIRECT VIVIAN Last Admin: 11/09/18 04:51 Dose: 75 mls/hr Documented by: Levofloxacin/Dextrose (Levaquin 750mg/150ml) 750 mg in 150 mls @ 100 mls/hr IV Q24HR VIVIAN; Protocol Last Admin: 11/09/18 10:43 Dose: 100 mls/hr Documented by: Metronidazole (Flagyl 500 Mg/100 Ml) 500 mg in 100 mls @ 100 mls/hr IV Q8HR VIVIAN; Protocol Last Admin: 11/09/18 05:01 Dose: 100 mls/hr Documented by: Ondansetron HCl (Zofran) 4 mg IV Q8H PRN PRN Reason: Nausea And Vomiting Oxycodone/Acetaminophen (Percocet 5/325) 1 tab PO Q6H PRN PRN Reason: Pain, Moderate (4-6) Last Admin: 11/09/18 04:57 Dose: 1 tab Documented by: Sodium Chloride (Sodium Chloride Flush Syringe 10 Ml) 10 ml IV BID VIVIAN Last Admin: 11/09/18 10:48 Dose: 10 ml Documented by: Sodium Chloride (Sodium Chloride Flush Syringe 10 Ml) 10 ml IV PRN PRN PRN Reason: LINE FLUSH Physical Examination - Physical Exam Narrative exam: Physical Exam: Constitutional: Alert, cooperative. No acute distress Head, Ears, Nose: Normocephalic, atraumatic. External ears, nose normal Eyes: Conjunctivae/corneas clear. No icterus. No ptosis. Neck: Supple, no meningeal signs Oral: dentition fair, no thrush Cardiovascular: S1, S2 normal. Respiratory: Good air entry, clear to auscultation bilaterally GI: Soft, tender in LLQ; bowel sounds normal. No peritoneal signs Musculoskeletal: No pedal edema, no cyanosis. Skin: No rash or abscess Hem/Lymphatic: No palpable cervical or supraclavicular nodes. No lymphangitis Psych: Mood ok. Affect normal Neurological: Awake, alert, oriented. No gross abnormality - Constitutional Vitals: Vital Signs Temp Pulse Resp BP Pulse Ox 97.9 F 72 18 139/96 97 08/23/19 04:54 11/09/18 04:54 11/09/18 04:54 11/09/18 04:54 11/09/18 04:54 Temperature -Last 24 Hours Temperature 97.9 F Temperature 98.1 F Temperature 98.7 F Results - Labs CBC & Chem 7: 11/09/18 04:32 11/09/18 04:32 Labs: Abnormal lab results 11/09/18 11/09/18 Range/Units 04:32 04:32 MCV 100 H (84-94) fl MCH 33 H (28-32) pg [place] % (Auto) 12.8 H (0.0-7.3) % [place] # 1.1 H (0.0-0.8) K/mm3 BUN 6 L (9-20) mg/dL Glucose 74 L (75-100) mg/dL - Imaging and Cardiology CT scan - abdomen: report reviewed, image reviewed (CT scan shows no diverticulitis with mild progression and small intramural abscess.) Assessment and Plan Cultures: None A/P: 33/M with: 1) Acute sigmoid diverticulitis and small intramural abscess, not amenable for drainage: GI and general surgery following. Patient was recently discharged on oral ciprofloxacin and Flagyl for the same, however he only took Flagyl and did not take ciprofloxacin. There is mild progression of disease. Recommend t reatment with IV ceftriaxone and Flagyl. Recs: d/c Levofloxacin started IV Ceftriaxone 2 gm q24 hrs continue Flagyl 500 mg q8 hrs Ke Guerrero MD, FACP [facility] C: [phone] O: [phone] F: [phone]
[2018-11-09] MEDS ORDERED: MORPHINE IV PRN (15:42)
[2018-11-09] MEDS: ROCEPHIN/NS 2 GM/100 ML 2 GM/100 ML BAG IV SCH (16:58)
--- NOTE | 2018-11-09 23:33 | Consultation ---
REASON FOR CONSULTATION: Rule out recurrent diverticulitis. HISTORY OF PRESENT ILLNESS: The patient is a healthy 33-year-old gentleman well known to me. He presented to the Emergency Room back on 10/26/2018 at this institution with what turned out to be diverticulitis. The patient was doing well until approximately Monday night when his pain recurred and thus his return to the Emergency Room. PAST MEDICAL HISTORY: Pertinent for hypothyroidism. PAST SURGICAL HISTORY: Negative. ALLERGIES: No known allergies. PHYSICAL EXAMINATION: GENERAL: The patient states he is arrived. comfortable and cooperative. No acute distress. VITAL SIGNS: Shown to be afebrile with temperature 97.9, blood pressure is 139/96, pulse is 72, respirations of 18. ABDOMEN: Examination of the abdomen reveals to be soft and nontender at present. LABORATORY DATA: Lab work includes CBC, which shows white count of 8.5, H and H is 13 and 41. White count was noted to be 14 on admission. Electrolytes are all essentially within normal limits. CT scan of the abdomen has been performed, which I reviewed with Radiology. CT shows evidence of inflammation around the sigmoid colon, but no evidence of any fluid collection or ischemic fluid collection. No evidence of any abscesses or microperforations. IMPRESSION: At this time is that of a healthy 33-year-old gentleman with recurrent diverticulitis. RECOMMENDATIONS: Would be to keep the patient n.p.o. at this time until his pain completely resolves off of any pain medication. Also, begin IV antibiotics as you have done. We will obtain ID evaluation. We will follow closely with you. Thank you very much for consultation. JOB# [id number] FP/RANDY
[2018-11-10] MEDS: FLAGYL 500 MG/100 ML 500 MG/100 ML BAG IV SCH ×3 (05:26→21:51)
[2018-11-10 06:07] LABS: Basophils # (Auto) 0.1 K/mm3 (0.0-0.1); Basophils % (Auto) 1.1 % (0.0-1.8); Eosinophils # (Auto) 0.3 K/mm3 (0.0-0.4); Eosinophils % (Auto) 3.3 % (0.0-4.3); Hematocrit 41.1 % (35.5-45.6); Hemoglobin 13.9 gm/dl (11.8-15.2); Lymphocytes # (Auto) 1.1 K/mm3 (1.2-5.4); Lymphocytes % (Auto) 14.1 % (13.4-35.0); Mean Corpuscular HGB Conc 34 % (32-34); Mean Corpuscular Volume 100 fl (84-94); Monocytes # (Auto) 1.1 K/mm3 (0.0-0.8); Monocytes % (Auto) 14.2 % (0.0-7.3); Platelet Count 229 K/mm3 (140-440); Red Blood Count 4.13 M/mm3 (3.65-5.03); Red Cell Distribution Width 14.1 % (13.2-15.2)
[2018-11-10 06:24] LABS: BUN/Creatinine Ratio 11; Blood Urea Nitrogen 9 mg/dL (9-20); Calcium 8.9 mg/dL (8.4-10.2); Hemolysis Index 7
--- NOTE | 2018-11-10 09:25 | Progress Note ---
Assessment and Plan Assessment and plan: Acute diverticulitis. Continue with IV antibiotics. ID change antibiotic to Rocephin. Continue supportive care and pain control. SIRS. Etiology secondary to above. Hypothyroidism. Check TSH level History Interval history: No new issues overnight Hospitalist Physical - Constitutional Vitals: Temp Pulse Resp BP Pulse Ox 97.7 F 59 L 18 134/90 99 11/10/18 05:03 11/10/18 05:03 11/10/18 05:03 11/10/18 05:03 11/10/18 05:03 General appearance: Present: no acute distress, well-nourished - EENT Eyes: Present: PERRL, EOM intact ENT: hearing intact, clear oral mucosa, dentition normal - Neck Neck: Present: supple, normal ROM - Respiratory Respiratory effort: normal Respiratory: bilateral: CTA - Cardiovascular Rhythm: regular Heart Sounds: Present: S1 & S2. Absent: gallop, rub - Extremities Extremities: no ischemia, No edema, Full ROM - Abdominal General gastrointestinal: soft, non-tender, non-distended, normal bowel sounds - Integumentary Integumentary: Present: clear, warm, dry - Neurologic Neurologic: CNII-XII intact, moves all extremities Results - Labs CBC & Chem 7: 11/10/18 05:50 11/10/18 05:50 Labs: Laboratory Last Values WBC 8.1 K/mm3 (4.5-11.0) 11/10/18 05:50 RBC 4.13 M/mm3 (3.65-5.03) 11/10/18 05:50 Hgb 13.9 gm/dl (11.8-15.2) 11/10/18 05:50 Hct 41.1 % (35.5-45.6) 11/10/18 05:50 MCV 100 fl (84-94) H 11/10/18 05:50 MCH 34 pg (28-32) H 11/10/18 05:50 MCHC 34 % (32-34) 11/10/18 05:50 RDW 14.1 % (13.2-15.2) 11/10/18 05:50 Plt Count 229 K/mm3 (140-440) 11/10/18 05:50 Lymph % (Auto) 14.1 % (13.4-35.0) 11/10/18 05:50 [place] % (Auto) 14.2 % (0.0-7.3) H 11/10/18 05:50 Eos % (Auto) 3.3 % (0.0-4.3) 11/10/18 05:50 Baso % (Auto) 1.1 % (0.0-1.8) 11/10/18 05:50 Lymph # 1.1 K/mm3 (1.2-5.4) L 11/10/18 05:50 [place] # 1.1 K/mm3 (0.0-0.8) H 11/10/18 05:50 Eos # 0.3 K/mm3 (0.0-0.4) 11/10/18 05:50 Baso # 0.1 K/mm3 (0.0-0.1) 11/10/18 05:50 Seg Neutrophils % 67.3 % (40.0-70.0) 11/10/18 05:50 Seg Neutrophils # 5.5 K/mm3 (1.8-7.7) 11/10/18 05:50 Sodium 138 mmol/L (137-145) 11/10/18 05:50 Potassium 4.2 mmol/L (3.6-5.0) 11/10/18 05:50 Chloride 99.0 mmol/L (98-107) 11/10/18 05:50 Carbon Dioxide 25 mmol/L (22-30) 11/10/18 05:50 18 mmol/L 11/10/18 05:50 BUN 9 mg/dL (9-20) 11/10/18 05:50 0.8 mg/dL (0.8-1.5) 11/10/18 05:50 Estimated GFR > 60 ml/min 11/10/18 05:50 11 % 11/10/18 05:50 Glucose 61 mg/dL (75-100) L 11/10/18 05:50 Lactic Acid 0.60 mmol/L (0.7-2.0) L 11/08/18 04:16 Calcium 8.9 mg/dL (8.4-10.2) 11/10/18 05:50 0.60 mg/dL (0.1-1.2) 11/08/18 03:19 AST 14 units/L (5-40) 11/08/18 03:19 ALT 18 units/L (7-56) 11/08/18 03:19 39 units/L (35-129) 11/08/18 03:19 6.2 g/dL (6.3-8.2) L 11/08/18 03:19 3.9 g/dL (3.9-5) 11/08/18 03:19 1.7 % 11/08/18 03:19 Yellow (Yellow) 11/08/18 04:22 Clear (Clear) 11/08/18 04:22 5.0 (5.0-7.0) 11/08/18 04:22 Ur Specific [place] 1.016 (1.003-1.030) 11/08/18 04:22 <15 mg/dl mg/dL (Negative) 11/08/18 04:22 Neg mg/dL (Negative) 11/08/18 04:22 Neg mg/dL (Negative) 11/08/18 04:22 Neg (Negative) 11/08/18 04:22 Neg (Negative) 11/08/18 04:22 Neg (Negative) 11/08/18 04:22 < 2.0 mg/dL (<2.0) 11/08/18 04:22 Ur Leukocyte Esterase Tr (Negative) 11/08/18 04:22 1.0 /HPF (0.0-6.0) 11/08/18 04:22 1.0 /HPF (0.0-6.0) 11/08/18 04:22 Active Medications - Current Medications Current Medications: Generic Name Dose Route Start Last Admin Trade Name Azar PRN Reason Stop Dose Admin Acetaminophen 650 mg 11/08/18 11:40 Tylenol PO Q4H PRN Pain MILD(1-3)/Fever >100.5/LAFLEUR Docusate Sodium 100 mg 11/08/18 22:00 11/09/18 21:36 Colace PO 100 mg BID VIVIAN Administration Enoxaparin Sodium 40 mg 11/09/18 10:00 11/09/18 10:00 Lovenox SUB-Q Not Given QDAY VIVIAN Sodium Chloride 1,000 mls @ 75 mls/hr 11/08/18 12:00 11/09/18 23:03 Nacl 0.9% 1000 Ml IV 75 mls/hr DIRECT VIVIAN Administration Metronidazole 500 mg in 100 mls @ 100 mls/hr 11/08/18 14:00 11/10/18 05:26 Flagyl 500 Mg/100 Ml IV 100 mls/hr Q8HR VIVIAN Administration Protocol Ceftriaxone Sodium 2 gm in 100 mls @ 200 mls/hr 11/09/18 16:00 11/09/18 16:58 Rocephin/Ns 2 Gm/100 Ml IV 200 mls/hr Q24HR VIVIAN Administration Protocol Morphine Sulfate 1 mg 11/09/18 15:42 11/09/18 16:46 Morphine IV 1 mg Q4H PRN Administration Pain, Moderate (4-6) Ondansetron HCl 4 mg 11/08/18 11:40 Zofran IV Q8H PRN Nausea And Vomiting Oxycodone/Acetaminophen 1 tab 11/08/18 11:40 11/09/18 21:39 Percocet 5/325 PO 1 tab Q6H PRN Administration Pain, Moderate (4-6) Sodium Chloride 10 ml 11/08/18 22:00 11/09/18 21:35 Sodium Chloride Flush Syringe 10 Ml IV Not Given BID VIVIAN Sodium Chloride 10 ml 11/08/18 11:40 Sodium Chloride Flush Syringe 10 Ml IV PRN PRN LINE FLUSH Nutrition/Malnutrition Assess - Dietary Evaluation Nutrition/Malnutrition Findings: Nutrition Notes Start: 11/09/18 14:29 Freq: Status: Active Protocol: Document 11/09/18 14:29 JESSE (Rec: 11/09/18 14:37 [facility] [id number] [email or web address]) Nutrition Notes Need for Assessment generated from: MD Order,gas adjuster,[facility] Initial or Follow up Assessment Other Pertinent Diagnosis Acute diverticulitis Current Diet NPO Labs/Tests reviewed Pertinent Medications Colace Height 6 ft 3 in Weight 96.82 kg Usual Body Weight 97 kg [place] Body Weight (kg) 89.09 BMI 26.6 Intake Prior to Admission Fair Weight Status Appropriate Subjective/Other Information RD consulted for poor oral intake; pt also screened for malnutrition risk (wt loss, poor appetite) and skin risk ( Saulo score: 20). He reports last PO meal on 11/07. He admits to consuming a low fiber diet at home. Very receptive to diet education. Being followed by surgery. Burn Absent Trauma Absent #1 Nutrition Diagnosis Altered GI function Etiology diverticulitis As Evidenced by Signs and Symptoms pt NPO since 11/07 Is patient on ventilator? No Is Patient Ambulatory and/or Out of Bed Yes REE-([facility]-ambulatory/OOB) [ 2611.479 NUTR.MSJOOB] Calculation Used for Recommendations [facility] Additional Notes Pro needs 0.8-1g/k-96g/ day Fluid needs 1ml/kcal Nutrition Intervention Change Diet Order: Diet advancement when medically feasible Teaching Recipient Patient Learning Readiness Good Teaching Methods Discussion,Handout Response to Teaching Verbalize understanding Education Handouts Provided Low-Fiber Nutrition Therapy High-Fiber Nutrition Therapy Barriers to Learning No Barriers RD phone number provided Yes Patient aware of follow up options Yes Goal #1 Pt to increase daily dietary fiber intake when diverticulitis resolved Anticipated Discharge Needs: High-Fiber diet Follow-Up By: 11/14/18 Additional Comments F/U: diet advancement
[2018-11-10] MEDS: COLACE PO SCH ×3 (12:02→21:50)
[2018-11-10] MEDS: ROCEPHIN/NS 2 GM/100 ML 2 GM/100 ML BAG IV SCH (12:02)
[2018-11-10] MEDS: LOVENOX SUB-Q SCH (12:03)
[2018-11-10] MEDS: SODIUM CHLORIDE FLUSH SYRINGE 10 ML IV SCH ×2 (12:09→21:52)
--- NOTE | 2018-11-10 13:13 | Progress Note ---
Assessment and Plan Pt feeling better. denies pain at present. required some narcotics for pain relief yesterday but none today. Abd soft, non tender ID eval appreciated started on Rocephin surgically stable begin ice chips, popsicles and po meds. may advance to liq in am if no pain throughout the day Selected Entries 11/10/18 11/10/18 05:03 11:23 Temperature 98.9 F Pulse Rate 74 Respiratory 18 Rate Blood Pressure 142/94 Laboratory Tests 11/10/18 05:50 WBC 8.1 Objective Vital Signs - 12hr 11/10/18 11/10/18 05:03 11:23 Temperature 97.7 F 98.9 F Pulse Rate 59 L 74 Respiratory 18 22 Rate Blood Pressure 134/90 142/94 O2 Sat by Pulse 99 98 Oximetry - Labs 11/10/18 05:50 11/10/18 05:50 Diabetes panel 11/10/18 Range/Units 05:50 Sodium 138 (137-145) mmol/L Potassium 4.2 (3.6-5.0) mmol/L Chloride 99.0 (98-107) mmol/L Carbon Dioxide 25 (22-30) mmol/L BUN 9 (9-20) mg/dL Creatinine 0.8 (0.8-1.5) mg/dL Glucose 61 L (75-100) mg/dL Calcium 8.9 (8.4-10.2) mg/dL Thyroid panel 11/10/18 Range/Units 09:57 TSH 12.760 H (0.270-4.200) mlU/mL Calcium panel 11/10/18 Range/Units 05:50 Calcium 8.9 (8.4-10.2) mg/dL Pituitary panel 11/10/18 11/10/18 Range/Units 05:50 09:57 Sodium 138 (137-145) mmol/L Potassium 4.2 (3.6-5.0) mmol/L Chloride 99.0 (98-107) mmol/L Carbon Dioxide 25 (22-30) mmol/L BUN 9 (9-20) mg/dL Creatinine 0.8 (0.8-1.5) mg/dL Glucose 61 L (75-100) mg/dL Calcium 8.9 (8.4-10.2) mg/dL TSH 12.760 H (0.270-4.200) mlU/mL Adrenal panel 11/10/18 Range/Units 05:50 Sodium 138 (137-145) mmol/L Potassium 4.2 (3.6-5.0) mmol/L Chloride 99.0 (98-107) mmol/L Carbon Dioxide 25 (22-30) mmol/L BUN 9 (9-20) mg/dL Creatinine 0.8 (0.8-1.5) mg/dL Glucose 61 L (75-100) mg/dL Calcium 8.9 (8.4-10.2) mg/dL
[2018-11-10] MEDS: NACL 0.9% 1000 ML 1,000 ML IV SCH (14:49)
[2018-11-10] MEDS: PERCOCET 5/325 PO PRN (21:50)
[2018-11-11] MEDS: NACL 0.9% 1000 ML 1,000 ML IV SCH ×2 (04:58→22:28)
[2018-11-11] MEDS: FLAGYL 500 MG/100 ML 500 MG/100 ML BAG IV SCH ×3 (05:00→22:27)
--- NOTE | 2018-11-11 09:14 | Progress Note ---
Assessment and Plan Assessment and plan: Acute diverticulitis. Continue with IV antibiotics per ID recommendations. Continue supportive care and pain control. SIRS. Etiology secondary to above. Hypothyroidism. TSH level high. Patient apparently has been off Synthroid. Restart medication. History Interval history: No new issues overnight Hospitalist Physical - Constitutional Vitals: Temp Pulse Resp BP Pulse Ox 98.0 F 53 L 18 132/83 96 11/11/18 05:01 11/11/18 05:01 11/11/18 05:01 11/11/18 05:01 11/11/18 05:01 General appearance: Present: no acute distress, well-nourished - EENT Eyes: Present: PERRL, EOM intact ENT: hearing intact, clear oral mucosa, dentition normal - Neck Neck: Present: supple, normal ROM - Respiratory Respiratory effort: normal Respiratory: bilateral: CTA - Cardiovascular Rhythm: regular Heart Sounds: Present: S1 & S2. Absent: gallop, rub - Extremities Extremities: no ischemia, No edema, Full ROM - Abdominal General gastrointestinal: soft, non-tender, non-distended, normal bowel sounds - Integumentary Integumentary: Present: clear, warm, dry - Neurologic Neurologic: CNII-XII intact, moves all extremities Results - Labs CBC & Chem 7: 11/10/18 05:50 11/10/18 05:50 Labs: Laboratory Last Values WBC 8.1 K/mm3 (4.5-11.0) 11/10/18 05:50 RBC 4.13 M/mm3 (3.65-5.03) 11/10/18 05:50 Hgb 13.9 gm/dl (11.8-15.2) 11/10/18 05:50 Hct 41.1 % (35.5-45.6) 11/10/18 05:50 MCV 100 fl (84-94) H 11/10/18 05:50 MCH 34 pg (28-32) H 11/10/18 05:50 MCHC 34 % (32-34) 11/10/18 05:50 RDW 14.1 % (13.2-15.2) 11/10/18 05:50 Plt Count 229 K/mm3 (140-440) 11/10/18 05:50 Lymph % (Auto) 14.1 % (13.4-35.0) 11/10/18 05:50 [place] % (Auto) 14.2 % (0.0-7.3) H 11/10/18 05:50 Eos % (Auto) 3.3 % (0.0-4.3) 11/10/18 05:50 Baso % (Auto) 1.1 % (0.0-1.8) 11/10/18 05:50 Lymph # 1.1 K/mm3 (1.2-5.4) L 11/10/18 05:50 [place] # 1.1 K/mm3 (0.0-0.8) H 11/10/18 05:50 Eos # 0.3 K/mm3 (0.0-0.4) 11/10/18 05:50 Baso # 0.1 K/mm3 (0.0-0.1) 11/10/18 05:50 Seg Neutrophils % 67.3 % (40.0-70.0) 11/10/18 05:50 Seg Neutrophils # 5.5 K/mm3 (1.8-7.7) 11/10/18 05:50 Sodium 138 mmol/L (137-145) 11/10/18 05:50 Potassium 4.2 mmol/L (3.6-5.0) 11/10/18 05:50 Chloride 99.0 mmol/L (98-107) 11/10/18 05:50 Carbon Dioxide 25 mmol/L (22-30) 11/10/18 05:50 18 mmol/L 11/10/18 05:50 BUN 9 mg/dL (9-20) 11/10/18 05:50 0.8 mg/dL (0.8-1.5) 11/10/18 05:50 Estimated GFR > 60 ml/min 11/10/18 05:50 11 % 11/10/18 05:50 Glucose 61 mg/dL (75-100) L 11/10/18 05:50 Lactic Acid 0.60 mmol/L (0.7-2.0) L 11/08/18 04:16 Calcium 8.9 mg/dL (8.4-10.2) 11/10/18 05:50 0.60 mg/dL (0.1-1.2) 11/08/18 03:19 AST 14 units/L (5-40) 11/08/18 03:19 ALT 18 units/L (7-56) 11/08/18 03:19 39 units/L (35-129) 11/08/18 03:19 6.2 g/dL (6.3-8.2) L 11/08/18 03:19 3.9 g/dL (3.9-5) 11/08/18 03:19 1.7 % 11/08/18 03:19 TSH 12.760 mlU/mL (0.270-4.200) H 11/10/18 09:57 Yellow (Yellow) 11/08/18 04:22 Clear (Clear) 11/08/18 04:22 5.0 (5.0-7.0) 11/08/18 04:22 Ur Specific [place] 1.016 (1.003-1.030) 11/08/18 04:22 <15 mg/dl mg/dL (Negative) 11/08/18 04:22 Neg mg/dL (Negative) 11/08/18 04:22 Neg mg/dL (Negative) 11/08/18 04:22 Neg (Negative) 11/08/18 04:22 Neg (Negative) 11/08/18 04:22 Neg (Negative) 11/08/18 04:22 < 2.0 mg/dL (<2.0) 11/08/18 04:22 Ur Leukocyte Esterase Tr (Negative) 11/08/18 04:22 1.0 /HPF (0.0-6.0) 11/08/18 04:22 1.0 /HPF (0.0-6.0) 11/08/18 04:22 Active Medications - Current Medications Current Medications: Generic Name Dose Route Start Last Admin Trade Name Freq PRN Reason Stop Dose Admin Acetaminophen 650 mg 11/08/18 11:40 Tylenol PO Q4H PRN Pain MILD(1-3)/Fever >100.5/LAFLEUR Docusate Sodium 100 mg 11/08/18 22:00 11/10/18 21:50 Colace PO 100 mg BID VIVIAN Administration Enoxaparin Sodium 40 mg 11/09/18 10:00 11/10/18 12:03 Lovenox SUB-Q Not Given QDAY [facility] Sodium Chloride 1,000 mls @ 75 mls/hr 11/08/18 12:00 11/11/18 04:58 Nacl 0.9% 1000 Ml IV 75 mls/hr DIRECT VIVIAN Administration Metronidazole 500 mg in 100 mls @ 100 mls/hr 11/08/18 14:00 11/11/18 05:00 Flagyl 500 Mg/100 Ml IV 100 mls/hr Q8HR VIVIAN Administration Protocol Ceftriaxone Sodium 2 gm in 100 mls @ 200 mls/hr 11/09/18 16:00 11/10/18 12:02 Rocephin/Ns 2 Gm/100 Ml IV 200 mls/hr Q24HR VIVIAN Administration Protocol Morphine Sulfate 1 mg 11/09/18 15:42 11/09/18 16:46 Morphine IV 1 mg Q4H PRN Administration Pain, Moderate (4-6) Ondansetron HCl 4 mg 11/08/18 11:40 Zofran IV Q8H PRN Nausea And Vomiting Oxycodone/Acetaminophen 1 tab 11/08/18 11:40 11/10/18 21:50 Percocet 5/325 PO 1 tab Q6H PRN Administration Pain, Moderate (4-6) Sodium Chloride 10 ml 11/08/18 22:00 11/10/18 21:52 Sodium Chloride Flush Syringe 10 Ml IV 10 ml BID VIVIAN Administration Sodium Chloride 10 ml 11/08/18 11:40 Sodium Chloride Flush Syringe 10 Ml IV PRN PRN LINE FLUSH Nutrition/Malnutrition Assess - Dietary Evaluation Nutrition/Malnutrition Findings: Nutrition Notes Start: 11/09/18 14:29 Freq: Status: Active Protocol: Document 11/09/18 14:29 JESSE (Rec: 11/09/18 14:37 JESSE [email or web address] 1) Nutrition Notes Need for Assessment generated from: MD Order,content strategy lead,MST Initial or Follow up Assessment Other Pertinent Diagnosis Acute diverticulitis Current Diet NPO Labs/Tests reviewed Pertinent Medications Colace Height 6 ft 3 in Weight 96.82 kg Usual Body Weight 97 kg [place] Body Weight (kg) 89.09 BMI 26.6 Intake Prior to Admission Fair Weight Status Appropriate Subjective/Other Information RD consulted for poor oral intake; pt also screened for malnutrition risk (wt loss, poor appetite) and skin risk ( Saulo score: 20). He reports last PO meal on 11/07. He admits to consuming a low fiber diet at home. Very receptive to diet education. Being followed by surgery. Burn Absent Trauma Absent #1 Nutrition Diagnosis Altered GI function Etiology diverticulitis As Evidenced by Signs and Symptoms pt NPO since 11/07 Is patient on ventilator? No Is Patient Ambulatory and/or Out of Bed Yes [facility] [ 2611.479 NUTR.[email or web address]] [facility] Additional Notes Pro needs 0.8-1g/k-96g/ day Fluid needs 1ml/kcal Nutrition Intervention Change Diet Order: Diet advancement when medically feasible Teaching Recipient Patient Learning Readiness Good Teaching Methods Discussion,Handout Response to Teaching Verbalize understanding Education Handouts Provided Low-Fiber Nutrition Therapy High-Fiber Nutrition Therapy Barriers to Learning No Barriers RD phone number provided Yes Patient aware of follow up options Yes Goal #1 Pt to increase daily dietary fiber intake when diverticulitis resolved Anticipated Discharge Needs: High-Fiber diet Follow-Up By: 11/14/18 Additional Comments F/U: diet advancement
[2018-11-11] MEDS: ROCEPHIN/NS 2 GM/100 ML 2 GM/100 ML BAG IV SCH (11:00)
[2018-11-11] MEDS: COLACE PO SCH ×2 (11:01→22:27)
[2018-11-11] MEDS: LOVENOX SUB-Q SCH (11:01)
[2018-11-11] MEDS: SODIUM CHLORIDE FLUSH SYRINGE 10 ML IV SCH ×2 (11:02→22:28)
[2018-11-11] MEDS: SYNTHROID PO SCH (11:14)
--- NOTE | 2018-11-11 13:06 | Progress Note ---
Assessment and Plan Pt feeling well. denies pain Abd soft, non tender surgically stable may advance to full liq in am as felicity antibiotics as per ID continue present care Selected Entries 11/11/18 11/11/18 05:01 11:09 Temperature 98.1 F Pulse Rate 76 Respiratory 18 Rate Blood Pressure 127/91 Objective Vital Signs - 12hr 11/11/18 11/11/18 05:01 11:09 Temperature 98.0 F 98.1 F Pulse Rate 53 L 76 Respiratory 18 20 Rate Blood Pressure 132/83 127/91 O2 Sat by Pulse 96 96 Oximetry - Labs 11/10/18 05:50 11/10/18 05:50
[2018-11-12] MEDS: SYNTHROID PO SCH (06:36)
[2018-11-12] MEDS: FLAGYL 500 MG/100 ML 500 MG/100 ML BAG IV SCH ×3 (06:36→22:24)
--- NOTE | 2018-11-12 10:02 | Progress Note ---
Assessment and Plan Assessment and plan: Acute diverticulitis. Continue with IV antibiotics per ID recommendations. Continue supportive care and pain control. Diet advanced per surgery. SIRS. Etiology secondary to above. Hypothyroidism. TSH level high. Patient apparently has been off Synthroid. Restarted medication. Disposition. Anticipate discharge in a.m. if tolerating diet. History Interval history: The patient is a 33-year-old male with history of hypothyroidism who recently was admitted to the hospital with acute diverticulitis, was discharged on oral ciprofloxacin and Flagyl return to the emergency room yesterday with complaints of left lower quadrant abdominal pain. Repeat CT scan in the emergency room again showed the presence of sigmoid diverticulitis with mild progression and intramural abscess. Infectious diseases was consulted for antibiotic recommendations. ID added Rocephin to the regimen. Patient has had progressive improvement. Patient's diet was advanced to clear liquids per surgery. No new issues overnight Hospitalist Physical - Constitutional Vitals: Temp Pulse Resp BP Pulse Ox 98.3 F 68 20 125/84 98 11/12/18 05:22 11/12/18 05:22 11/12/18 05:22 11/12/18 05:22 11/12/18 05:22 General appearance: Present: no acute distress, well-nourished - EENT Eyes: Present: PERRL, EOM intact ENT: hearing intact, clear oral mucosa, dentition normal - Neck Neck: Present: supple, normal ROM - Respiratory Respiratory effort: normal Respiratory: bilateral: CTA - Cardiovascular Rhythm: regular Heart Sounds: Present: S1 & S2. Absent: gallop, rub - Extremities Extremities: no ischemia, No edema, Full ROM - Abdominal General gastrointestinal: soft, non-tender, non-distended, normal bowel sounds - Integumentary Integumentary: Present: clear, warm, dry - Neurologic Neurologic: CNII-XII intact, moves all extremities Results - Labs CBC & Chem 7: 11/10/18 05:50 11/10/18 05:50 Labs: Laboratory Last Values WBC 8.1 K/mm3 (4.5-11.0) 11/10/18 05:50 RBC 4.13 M/mm3 (3.65-5.03) 11/10/18 05:50 Hgb 13.9 gm/dl (11.8-15.2) 11/10/18 05:50 Hct 41.1 % (35.5-45.6) 11/10/18 05:50 MCV 100 fl (84-94) H 11/10/18 05:50 MCH 34 pg (28-32) H 11/10/18 05:50 MCHC 34 % (32-34) 11/10/18 05:50 RDW 14.1 % (13.2-15.2) 11/10/18 05:50 Plt Count 229 K/mm3 (140-440) 11/10/18 05:50 Lymph % (Auto) 14.1 % (13.4-35.0) 11/10/18 05:50 [place] % (Auto) 14.2 % (0.0-7.3) H 11/10/18 05:50 Eos % (Auto) 3.3 % (0.0-4.3) 11/10/18 05:50 Baso % (Auto) 1.1 % (0.0-1.8) 11/10/18 05:50 Lymph # 1.1 K/mm3 (1.2-5.4) L 11/10/18 05:50 [place] # 1.1 K/mm3 (0.0-0.8) H 11/10/18 05:50 Eos # 0.3 K/mm3 (0.0-0.4) 11/10/18 05:50 Baso # 0.1 K/mm3 (0.0-0.1) 11/10/18 05:50 Seg Neutrophils % 67.3 % (40.0-70.0) 11/10/18 05:50 Seg Neutrophils # 5.5 K/mm3 (1.8-7.7) 11/10/18 05:50 Sodium 138 mmol/L (137-145) 11/10/18 05:50 Potassium 4.2 mmol/L (3.6-5.0) 11/10/18 05:50 Chloride 99.0 mmol/L (98-107) 11/10/18 05:50 Carbon Dioxide 25 mmol/L (22-30) 11/10/18 05:50 18 mmol/L 11/10/18 05:50 BUN 9 mg/dL (9-20) 11/10/18 05:50 0.8 mg/dL (0.8-1.5) 11/10/18 05:50 Estimated GFR > 60 ml/min 11/10/18 05:50 11 % 11/10/18 05:50 Glucose 61 mg/dL (75-100) L 11/10/18 05:50 Lactic Acid 0.60 mmol/L (0.7-2.0) L 11/08/18 04:16 Calcium 8.9 mg/dL (8.4-10.2) 11/10/18 05:50 0.60 mg/dL (0.1-1.2) 11/08/18 03:19 AST 14 units/L (5-40) 11/08/18 03:19 ALT 18 units/L (7-56) 11/08/18 03:19 39 units/L (35-129) 11/08/18 03:19 6.2 g/dL (6.3-8.2) L 11/08/18 03:19 3.9 g/dL (3.9-5) 11/08/18 03:19 1.7 % 11/08/18 03:19 TSH 12.760 mlU/mL (0.270-4.200) H 11/10/18 09:57 Yellow (Yellow) 11/08/18 04:22 Clear (Clear) 11/08/18 04:22 5.0 (5.0-7.0) 11/08/18 04:22 Ur Specific [place] 1.016 (1.003-1.030) 11/08/18 04:22 <15 mg/dl mg/dL (Negative) 11/08/18 04:22 Neg mg/dL (Negative) 11/08/18 04:22 Neg mg/dL (Negative) 11/08/18 04:22 Neg (Negative) 11/08/18 04:22 Neg (Negative) 11/08/18 04:22 Neg (Negative) 11/08/18 04:22 < 2.0 mg/dL (<2.0) 11/08/18 04:22 Ur Leukocyte Esterase Tr (Negative) 11/08/18 04:22 1.0 /HPF (0.0-6.0) 11/08/18 04:22 1.0 /HPF (0.0-6.0) 11/08/18 04:22 Active Medications - Current Medications Current Medications: Generic Name Dose Route Start Last Admin Trade Name Freq PRN Reason Stop Dose Admin Acetaminophen 650 mg 11/08/18 11:40 Tylenol PO Q4H PRN Pain MILD(1-3)/Fever >100.5/LAFLEUR Docusate Sodium 100 mg 11/08/18 22:00 11/11/18 22:27 Colace PO 100 mg BID VIVIAN Administration Enoxaparin Sodium 40 mg 11/09/18 10:00 11/11/18 11:01 Lovenox SUB-Q Not Given QDAY VIVIAN Sodium Chloride 1,000 mls @ 75 mls/hr 11/08/18 12:00 11/11/18 22:28 Nacl 0.9% 1000 Ml IV 75 mls/hr DIRECT VIVIAN Administration Metronidazole 500 mg in 100 mls @ 100 mls/hr 11/08/18 14:00 11/12/18 06:36 Flagyl 500 Mg/100 Ml IV 100 mls/hr Q8HR VIVIAN Administration Protocol Ceftriaxone Sodium 2 gm in 100 mls @ 200 mls/hr 11/09/18 16:00 11/11/18 11:00 Rocephin/Ns 2 Gm/100 Ml IV 200 mls/hr Q24HR VIVIAN Administration Protocol Levothyroxine Sodium 75 mcg 11/11/18 10:00 11/12/18 06:36 Synthroid PO 75 mcg 0600 VIVIAN Administration Morphine Sulfate 1 mg 11/09/18 15:42 11/09/18 16:46 Morphine IV 1 mg Q4H PRN Administration Pain, Moderate (4-6) Ondansetron HCl 4 mg 11/08/18 11:40 Zofran IV Q8H PRN Nausea And Vomiting Oxycodone/Acetaminophen 1 tab 11/08/18 11:40 11/10/18 21:50 Percocet 5/325 PO 1 tab Q6H PRN Administration Pain, Moderate (4-6) Sodium Chloride 10 ml 11/08/18 22:00 11/11/18 22:28 Sodium Chloride Flush Syringe 10 Ml IV Not Given BID VIVIAN Sodium Chloride 10 ml 11/08/18 11:40 Sodium Chloride Flush Syringe 10 Ml IV PRN PRN LINE FLUSH Nutrition/Malnutrition Assess - Dietary Evaluation Nutrition/Malnutrition Findings: Nutrition Notes Start: 11/09/18 14:29 Freq: Status: Active Protocol: Document 11/09/18 14:29 JESSE (Rec: 11/09/18 14:37 JESSE [email or web address]) Nutrition Notes Need for Assessment generated from: MD Order,coal gasification technician,MST Initial or Follow up Assessment Other Pertinent Diagnosis Acute diverticulitis Current Diet NPO Labs/Tests reviewed Pertinent Medications Colace Height 6 ft 3 in Weight 96.82 kg Usual Body Weight 97 kg [place] Body Weight (kg) 89.09 BMI 26.6 Intake Prior to Admission Fair Weight Status Appropriate Subjective/Other Information RD consulted for poor oral intake; pt also screened for malnutrition risk (wt loss, poor appetite) and skin risk ( Saulo score: 20). He reports last PO meal on 11/07. He admits to consuming a low fiber diet at home. Very receptive to diet education. Being followed by surgery. Burn Absent Trauma Absent #1 Nutrition Diagnosis Altered GI function Etiology diverticulitis As Evidenced by Signs and Symptoms pt NPO since 11/07 Is patient on ventilator? No Is Patient Ambulatory and/or Out of Bed Yes REE-(Aldrich-St. Jeor-ambulatory/OOB) [ 2611.479 NUTR.MSJOOB] Calculation Used for Recommendations Aldrich-St or Additional Notes Pro needs 0.8-1g/k-96g/ day Fluid needs 1ml/kcal Nutrition Intervention Change Diet Order: Diet advancement when medically feasible Teaching Recipient Patient Learning Readiness Good Teaching Methods Discussion,Handout Response to Teaching Verbalize understanding Education Handouts Provided Low-Fiber Nutrition Therapy High-Fiber Nutrition Therapy Barriers to Learning No Barriers RD phone number provided Yes Patient aware of follow up options Yes Goal #1 Pt to increase daily dietary fiber intake when diverticulitis resolved Anticipated Discharge Needs: High-Fiber diet Follow-Up By: 11/14/18 Additional Comments F/U: diet advancement
--- NOTE | 2018-11-12 10:11 | Progress Note ---
Assessment and Plan Cultures: None A/P: 33/M with: 1) Acute sigmoid diverticulitis and small intramural abscess, not amenable for drainage: GI and general surgery following. Patient was recently discharged on oral ciprofloxacin and Flagyl for the same, however he only took Flagyl and did not take ciprofloxacin. There is mild progression of disease. Recommend treatment with IV ceftriaxone and Flagyl. Recs: Continue IV Ceftriaxone 2 gm q24 hrs, D4 continue Flagyl 500 mg q8 hrs, D5 Anticipate discharge on Augmentin 875 PO BID and Levaquin 750mg q 24 hours for 14 days. Ofe Hector NP [facility] M: [phone] O:[phone] Subjective Date of service: 11/12/18 Interval history: Patient seen and examined. Reports improved abdominal symptoms, able to tolerate regular diet. No fevers. Objective - Exam Narrative Exam: Constitutional: Alert, cooperative. No acute distress Head, Ears, Nose: Normocephalic, atraumatic. External ears, nose normal Eyes: Conjunctivae/corneas clear. No icterus. No ptosis. Neck: Supple, no meningeal signs Oral: dentition fair, no thrush Cardiovascular: S1, S2 normal. Respiratory: Good air entry, clear to auscultation bilaterally GI: Soft, tender in LLQ; bowel sounds normal. + flatulence . No peritoneal signs Musculoskeletal: No pedal edema, no cyanosis. Skin: No rash or abscess Hem/Lymphatic: No palpable cervical or supraclavicular nodes. No lymphangitis Psych: Mood ok. Affect normal Neurological: Awake, alert, oriented. No gross abnormality - Constitutional Vitals: Vital Signs Temp Pulse Resp BP Pulse Ox 98.3 F 68 20 125/84 98 11/12/18 05:22 11/12/18 05:22 11/12/18 05:22 11/12/18 05:22 11/12/18 05:22 Temperature -Last 24 Hours Temperature 98.3 F Temperature 98.5 F Temperature 99.3 F Temperature 98.1 F - Labs CBC & Chem 7: 11/10/18 05:50 11/10/18 05:50
[2018-11-12] MEDS: ROCEPHIN/NS 2 GM/100 ML 2 GM/100 ML BAG IV SCH (11:04)
[2018-11-12] MEDS: COLACE PO SCH ×2 (11:05→22:26)
[2018-11-12] MEDS: LOVENOX SUB-Q SCH (11:10)
[2018-11-12] MEDS: SODIUM CHLORIDE FLUSH SYRINGE 10 ML IV SCH ×2 (11:10→22:24)
--- NOTE | 2018-11-12 13:42 | Progress Note ---
Assessment and Plan Pt feeling well without compl. felicity full liq. neg pain Abd soft, non tender resolving sigmoid diverticulitis surgically stable advance to solid high fiber diet may d/c in am if diet felicity and pain free antibiotics Rx plan as per ID will need f/u with ID, PCP, GI as well as myself Objective Vital Signs - 12hr 11/12/18 05:22 Temperature 98.3 F Pulse Rate 68 Respiratory 20 Rate Blood Pressure 125/84 O2 Sat by Pulse 98 Oximetry - Labs 11/10/18 05:50 11/10/18 05:50
--- NOTE | 2018-11-12 14:47 | Discharge Summary ---
Providers - Providers Date of Admission: 11/08/18 06:11 Date of discharge: 11/12/18 Attending physician: LOUIE ZAVALA 11/08/18 06:10 Consult to Physician [CONS] Urgent Comment: Consulting Provider: TARAN STROUD Physician Instructions: Reason For Exam: diverticulitis 11/08/18 10:57 Consult to Dietitian/Nutrition [CONS] Routine Physician Instructions: Reason For Exam: Reason for Consult: Poor oral intake 11/08/18 15:05 Consult to Physician [CONS] Routine Comment: Consulting Provider: PILAR MENDIETA Physician Instructions: consult surgery Reason For Exam: recurrent diverticulitis 11/09/18 13:54 Consult to Physician [CONS] Routine Comment: Consulting Provider: GRANT WHITTINGTON Physician Instructions: Reason For Exam: diverticulitis [facility] Reason for admission: diverticulitis Condition: Stable Hospital course: The patient is a 33-year-old male with history of hypothyroidism who recently was admitted to the hospital with acute diverticulitis, was discharged on oral ciprofloxacin and Flagyl return to the emergency room on 11/08/18 with complaints of left lower quadrant abdominal pain. Repeat CT scan in the emergency room again showed the presence of sigmoid diverticulitis with mild progression and intramural abscess. Infectious diseases was consulted for antibiotic recommendations. The patient was started on Levaquin and Flagyl in the emergency room. ID changed antibiotic to ceftriaxone and Flagyl. The patient has slow but significant improvement throughout hospital stay. Surgery was also consultation and did not recommend intervention. Diet was later advanced was patient tolerated it well. The patient is felt to proceed maximal hospital benefit and will be discharged home. ID recommends Augmentin and Levaquin for 2 weeks. Dedicated discharge time 35 minutes. Disposition: TO HOME OR SELFCARE Time spent for discharge: 35 - Discharge Diagnoses (1) Abdominal pain Status: Acute Qualifiers: Abdominal location: left lower quadrant Qualified Code(s): R10.32 - Left lower quadrant pain (2) Constipation Status: Acute Qualifiers: Constipation type: unspecified constipation type Qualified Code(s): K59.00 - Constipation, unspecified (3) Diverticulitis large intestine Status: Acute Qualifiers: Diverticulitis bleeding: with bleeding Diverticulitis complication: with abscess Qualified Code(s): K57.21 - Diverticulitis of large intestine with perforation and abscess with bleeding Core Measure Documentation - Palliative Care Palliative Care/ Comfort Measures: Not Applicable - Core Measures Any of the following diagnoses?: none Exam - Constitutional Vitals: Temp Pulse Resp BP Pulse Ox 97.6 F 79 18 144/90 99 11/12/18 11:55 11/12/18 11:55 11/12/18 11:55 11/12/18 11:55 11/12/18 11:55 General appearance: Present: no acute distress, well-nourished - EENT Eyes: Present: PERRL ENT: hearing intact, clear oral mucosa - Neck Neck: Present: supple, normal ROM - Respiratory Respiratory effort: normal Respiratory: bilateral: CTA - Cardiovascular Heart Sounds: Present: S1 & S2. Absent: rub, click - Extremities Extremities: pulses symmetrical, No edema Peripheral Pulses: within normal limits - Abdominal General gastrointestinal: Present: soft, non-tender, non-distended, normal bowel sounds Male genitourinary: Present: normal - Integumentary Integumentary: Present: clear, warm, dry - Musculoskeletal Musculoskeletal: gait normal, strength equal bilaterally - Psychiatric Psychiatric: appropriate mood/affect, intact judgment & insight - Neurologic Neurologic: CNII-XII intact, moves all extremities Plan Activity: no restrictions Weight Bearing Status: Full Weight Bearing Diet: regular [facility]Primary Care Provider] - 3-5 Days WESTON GAONA MD [Staff Physician] - 7 Days PILAR MENDIETA MD [Staff Physician] - 7 Days Prescriptions: Amoxicillin/Potassium Clav [Augmentin 875-125 Tablet] 1 each PO BID #28 tablet levoFLOXacin [Levaquin TAB] 500 mg PO QDAY #14 tablet oxyCODONE /ACETAMINOPHEN [Percocet 5/325 mg] 1 tab PO Q6H PRN #12 tablet PRN Reason: Pain, Moderate (4-6)
[2018-11-12] MEDS: PERCOCET 5/325 PO PRN (19:02)
[2018-11-12] MEDS: NACL 0.9% 1000 ML 1,000 ML IV SCH (22:25)
[2018-11-13] MEDS: SYNTHROID PO SCH (05:07)
[2018-11-13] MEDS: FLAGYL 500 MG/100 ML 500 MG/100 ML BAG IV SCH (05:07)
[2018-11-13 05:23] VITALS: BP 143/88
--- NOTE | 2018-11-13 09:07 | Event Note ---
Date: 11/13/18 Patient medically stable to dc. may go home
--- NOTE | 2018-11-13 09:37 | Progress Note ---
Assessment and Plan Pt fol solid diet without compl Abd soft, non tender surgically stable to be d/c'd today rto next tues (I wk) antibiotics as per ID Objective Vital Signs - 12hr 11/12/18 11/12/18 11/13/18 22:00 22:31 05:04 Temperature 97.9 F 98.1 F Pulse Rate 76 76 Respiratory 18 20 18 Rate Blood Pressure 128/89 143/88 O2 Sat by Pulse 96 98 Oximetry - Labs 11/10/18 05:50 11/10/18 05:50
[2018-11-13] MEDS: LOVENOX SUB-Q SCH (10:20)
[2018-11-13] MEDS: ROCEPHIN/NS 2 GM/100 ML 2 GM/100 ML BAG IV SCH (10:20)
[2018-11-13] MEDS: COLACE PO SCH (10:20)
[2018-11-13] MEDS: SODIUM CHLORIDE FLUSH SYRINGE 10 ML IV SCH (10:20)
== END 2018-11-13 09:45 | disposition home or self-care (01) | DRG 379 ==
LOC: ED 02:34 → 3A 06:11 → OBSVTOIN 11-12 17:46
PROVIDERS: ADMIT Internal Medicine; ATTEND Internal Medicine
DX: K57.21 Diverticulitis of large intestine with perforation and abscess with bleeding (principal); E03.9 Hypothyroidism, unspecified; F17.210 Nicotine dependence, cigarettes, uncomplicated; F12.90 Cannabis use, unspecified, uncomplicated; Z82.49 Family history of ischemic heart disease and other diseases of the circulatory system; Z83.3 Family history of diabetes mellitus; Z79.899 Other long term (current) drug therapy; Z80.8 Family history of malignant neoplasm of other organs or systems
CPT/HCPCS: 36415; 74177; 80048; 80053; 81001; 82140; 84443; 85025; 87116; 96361; 96372; 96374; 99406; G0378; J0696; J1650; J1956; J2270; J7030; Q9967

== ENCOUNTER 2020-06-03 13:04 | Emergency (ER) | payer OTHER ==
[2020-06-03 13:10] VITALS: BP 131/105
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
== END 2020-06-03 16:00 | disposition home or self-care (01) ==
LOC: ED 13:04
DX: S83.8X2A Sprain of other specified parts of left knee, initial encounter (principal); S16.1XXA Strain of muscle, fascia and tendon at neck level, initial encounter; E03.9 Hypothyroidism, unspecified; F17.200 Nicotine dependence, unspecified, uncomplicated; F12.90 Cannabis use, unspecified, uncomplicated; Z79.899 Other long term (current) drug therapy; V09.9XXA Pedestrian injured in unspecified transport accident, initial encounter; Y92.410 Unspecified street and highway as the place of occurrence of the external cause; Y93.89 Activity, other specified; Y99.8 Other external cause status

== ENCOUNTER 2021-03-26 13:16 | Emergency (ER) | payer SELFPAY ==
[2021-03-26] MEDS ORDERED: KETOROLAC 30 MG/1 ML INJ IV ONE (14:04)
--- NOTE | 2021-03-26 14:04 | Emergency Department Report ---
ED Abdominal Pain HPI - General Chief Complaint: Abdominal Pain Stated Complaint: DIVERTICULITIS/THYROID PUI?: No Time Seen by Provider: 03/26/21 13:57 Source: patient Mode of arrival: Ambulatory Limitations: No Limitations - History of Present Illness Initial Comments: 35-year-old male presents to the ER today with complaints of left lower quadrant pain. Patient states that he was diagnosed with diverticulitis the beginning of last year. He states that he was admitted, and treated medically and when he was discharged he was prescribed antibiotics, but he states that he couldn't afford it and never got it filled. He states that he also never followed up with a specialist that he was referred to. Patient states that he has been having this pain since he was diagnosed with diverticulitis but the main reason he came in today is because he can no longer tolerate the pain. He states that the pain radiates into his right thumb and also into his testicle at times. He states that his testicles feel tight, but denies any pain or swelling to them. He reports nausea but no vomiting. His last bowel movement was this morning and normal. He denies any dysuria, hematuria or frequency. He reports no penile discharge. He denies any fever or chills.. MD Complaint: abdominal pain -: month(s) - Related Data Previous Rx's Medication Instructions Recorded Last Taken Type Naproxen 500 mg PO BID PRN #14 tablet 06/03/20 Unknown Rx methOCARBAMOL [Robaxin TAB] 1,000 mg PO TID PRN #20 tab 06/03/20 Unknown Rx Ciprofloxacin HCl 500 mg PO BID #20 tab 03/26/21 Unknown Rx HYDROcodone/APAP 5-325 [Heidrick 1 each PO Q6HR PRN #12 tablet 03/26/21 Unknown Rx 5/325] Levothyroxine [Synthroid] 75 mcg PO QAM #30 03/26/21 Unknown Rx Ondansetron [Zofran Odt] 4 mg PO Q8HR #15 tab.rapdis 03/26/21 Unknown Rx metroNIDAZOLE [Flagyl] 500 mg PO Q6HR #40 tablet 03/26/21 Unknown Rx Allergies Allergy/AdvReac Type Severity Reaction Status Date / Time No Known Allergies Allergy Verified 06/03/20 13:07 ED Review of Systems ROS: Stated complaint: DIVERTICULITIS/THYROID Other details as noted in HPI Comment: All other systems reviewed and negative Constitutional: denies: chills, fever Eyes: denies: eye pain, eye discharge, vision change ENT: denies: ear pain, throat pain Respiratory: denies: cough, shortness of breath, SOB with exertion, SOB at rest, wheezing Cardiovascular: denies: chest pain, palpitations Gastrointestinal: abdominal pain, nausea. denies: vomiting, diarrhea, constipation, hematemesis, melena, hematochezia Genitourinary: testicular pain. denies: urgency, dysuria, frequency, hematuria, discharge, testicular mass Musculoskeletal: denies: back pain, joint swelling, arthralgia Skin: denies: rash, lesions, change in color, change in hair/nails, pruritus Neurological: denies: headache, weakness, numbness, paresthesias, confusion, abnormal gait, vertigo Psychiatric: denies: anxiety, depression, auditory hallucinations, visual hallucinations, homicidal thoughts, suicidal thoughts Hematological/Lymphatic: denies: easy bleeding, easy bruising, swollen glands ED Past Medical Hx - Past Medical History Additional medical history: Hypothyroidism - Surgical History Past Surgical History?: No - Social History Smoking Status: Current Every Day Smoker Substance Use Type: Marijuana - Medications Home Medications: Home Medications Medication Instructions Recorded Confirmed Last Taken Type Naproxen 500 mg PO BID PRN #14 tablet 06/03/20 Unknown Rx methOCARBAMOL [Robaxin TAB] 1,000 mg PO TID PRN #20 tab 06/03/20 Unknown Rx Ciprofloxacin HCl 500 mg PO BID #20 tab 03/26/21 Unknown Rx HYDROcodone/APAP 5-325 [Heidrick 1 each PO Q6HR PRN #12 tablet 03/26/21 Unknown Rx 5/325] Levothyroxine [Synthroid] 75 mcg PO QAM #30 03/26/21 Unknown Rx Ondansetron [Zofran Odt] 4 mg PO Q8HR #15 tab.rapdis 03/26/21 Unknown Rx metroNIDAZOLE [Flagyl] 500 mg PO Q6HR #40 tablet 03/26/21 Unknown Rx ED Physical Exam - General Limitations: No Limitations General appearance: alert, in no apparent distress - Head Head exam: Present: atraumatic, normocephalic, normal inspection - Eye Eye exam: Present: normal appearance, PERRL, EOMI Pupils: Present: normal accommodation - Neck Neck exam: Present: normal inspection, full ROM. Absent: meningismus - Respiratory Respiratory exam: Present: normal lung sounds bilaterally. Absent: respiratory distress, wheezes, rales, rhonchi - Cardiovascular Cardiovascular Exam: Present: regular rate, normal rhythm, normal heart sounds - GI/Abdominal GI/Abdominal exam: Present: soft, tenderness (LLQ with mild guarding ). Absent: distended - exam: Present: normal inspection, other (Pillowcase Folder present ). Absent: testicular tenderness, urethral discharge, scrotal swelling, vertical testicular lie, circumcision External exam: Present: normal external exam - Neurological Exam Neurological exam: Present: alert, oriented X3, CN II-XII intact, normal gait. Absent: motor sensory deficit - Psychiatric Psychiatric exam: Present: normal affect, normal mood - Skin Skin exam: Present: intact ED Course Vital Signs 03/26/21 03/26/21 13:54 14:22 Temperature 98.3 F Pulse Rate 73 Respiratory 18 16 Rate Blood Pressure 131/98 O2 Sat by Pulse 100 Oximetry ED Medical Decision Making - Lab Data Result diagrams: 03/26/21 14:15 03/26/21 16:38 - Radiology Data Radiology results: report reviewed Patient: GABBIE STRANGE MR#: [id number] : 1985 Acct:[id number] Age/Sex: 35 / M ADM Date: 03/26/21 Loc: ED Attending Dr: Ordering Physician: BETTE SNYDER Date of Service: 03/26/21 Procedure(s): CT abdomen pelvis w con Accession Number(s): [id number] cc: BETTE SNYDER CT OF THE ABDOMEN AND PELVIS WITH INTRAVENOUS CONTRAST INDICATION / CLINICAL INFORMATION: LLQ pain/hx diverticulitis. TECHNIQUE: The patient received 100 cc Omnipaque [address] scans at this location are performed using CT dose reduction for ALARA by means of automated exposure control. COMPARISON: 11/08/18. FINDINGS: ABDOMEN: The liver, spleen, gallbladder, bile ducts, pancreas, adrenal glands and kidneys are normal. I see no evidence of bowel obstruction or free air. No adenopathy is present. No acute vascular abnormality is seen. The lung bases are clear. PELVIS: There are scattered sigmoid diverticula. There is acute inflammation involving the proximal sigmoid colon anteriorly. There is associated bowel wall thickening and pericolo shanika soft tissue stranding. I see no evidence of abscess, extraluminal gas or bowel obstruction. The inflammatory changes are in the same region as on the 2019 study. The distal ureters, urinary bladder and prostate gland are normal. A normal appendix is present. No abnormal mass or fluid collection is seen. I do not identify a hernia. No acute osseous abnormality is seen. IMPRESSION: Mild to moderate acute, uncomplicated diverticulitis involving the proximal sigmoid colon. Signer Name: Bandar Harp MD Signed: 03/26/2021 4:26 PM Workstation Name: [id number] Transcribed By: RT Dictated By: Bandar Harp MD Electronically Authenticated By: Bandar Harp MD Signed Date/Time: 03/26/211625 DD/ 21 TD/TT: - Medical Decision Making Labs reviewed, no significant abnormality on labs today. CT abdomen pelvis sh ows uncomplicated diverticulitis in the sigmoid colon. Patient has been observed interactive with other patients in the reassessment room. He is not in any significant distress. He is not toxic or ill-appearing. He is neurologically intact with a normal gait. He had no testicular swelling or pain on exam. His vital signs are stable. Discussed results with patient, he will be started on Cipro and Flagyl and informed him that his point and that he takes his medication and to completion. He will be given medication also to help his pain and also referral to GI for further evaluation and possible colonoscopy. Also recommend that he follows up with his PCP. Patient requesting a refill on his Synthroid and this was also given today. Patient expressed understanding of all instructions and agree with plan. Patient was stable at time of discharge. - Differential Diagnosis Diverticulitis, UTI, electrolyte abnormality Critical care attestation.: If time is entered above; I have spent that time in minutes in the direct care of this critically ill patient, excluding procedure time. ED Disposition Clinical Impression: Diverticulitis large intestine Disposition: HOME / SELF CARE / HOMELESS Is pt being admited?: No Condition: Stable Instructions: Diverticulitis, [id number] Additional Instructions: Recommend that you take the Flagyl and Cipro as prescribed until completion. Take the hydrocodone to help with any pain. Drink lots of fluids. Increase yo ur fiber intake. I do recommend that you follow-up with a GI specialist listed on discharge instructions as well as the primary care doctor. Return to the ER if your symptoms worsens or changes in any way. Prescriptions: Ciprofloxacin HCl 500 mg PO BID #20 tab metroNIDAZOLE [Flagyl] 500 mg PO Q6HR #40 tablet HYDROcodone/APAP 5-325 [Heidrick 5/325] 1 each PO Q6HR PRN #12 tablet PRN Reason: Pain Levothyroxine [Synthroid] 75 mcg PO QAM #30 Ondansetron [Zofran Odt] 4 mg PO Q8HR #15 tab.lolita Referrals: SHANNON BEAULIEU MD [Staff Physician] - 3-5 Days [facility] [Provider Group] - 3-5 Days Forms: Work/School Release Form(ED) Time of Disposition: 17:38
[2021-03-26] MEDS ORDERED: ONDANSETRON 4 MG/2 ML INJ IV ONE (14:06)
[2021-03-26 14:39] LABS: Basophils # (Auto) 0.1 K/mm3 (0.0-0.1); Basophils % (Auto) 0.7 % (0.0-1.8); Eosinophils # (Auto) 0.3 K/mm3 (0.0-0.4); Eosinophils % (Auto) 2.2 % (0.0-4.3); Hematocrit 39.3 % (35.5-45.6); Hemoglobin 13.5 gm/dl (11.8-15.2); Lymphocytes # (Auto) 1.5 K/mm3 (1.2-5.4); Lymphocytes % (Auto) 13.5 % (13.4-35.0); Mean Corpuscular HGB Conc 35 % (32-34); Mean Corpuscular Volume 95 fl (84-94); Monocytes # (Auto) 1.1 K/mm3 (0.0-0.8); Monocytes % (Auto) 9.4 % (0.0-7.3); Platelet Count 323 K/mm3 (140-440); Red Blood Count 4.11 M/mm3 (3.65-5.03); Red Cell Distribution Width 14.5 % (13.2-15.2)
[2021-03-26 15:09] LABS: Bilirubin,Urine NEG (Negative); Color,Urine Yellow (Yellow); Protein,Urine <15 mg/dL mg/dL (Negative); Urobilinogen,Urine < 2.0 mg/dL (<2.0)
[2021-03-26 15:16] LABS: Blood,Urine LG (Negative); Mucus,Urine FEW /HPF
[2021-03-26 15:29] LABS: BUN/Creatinine Ratio TNR; Bilirubin,Direct TNR mg/dL (0-0.2); Blood Urea Nitrogen TNR mg/dL (9-20); Calcium TNR mg/dL (8.4-10.2)
[2021-03-26 15:30] LABS: Alanine Aminotransferase TNR units/L (7-56); Albumin TNR g/dL (3.9-5); Hemolysis Index TNR
--- NOTE | 2021-03-26 16:30 | Cat Scan Report ---
CT OF THE ABDOMEN AND PELVIS WITH INTRAVENOUS CONTRAST INDICATION / CLINICAL INFORMATION: LLQ pain/hx diverticulitis. TECHNIQUE: The patient received 100 cc Omnipaque [address] scans at this location are performed using CT dose reduction for ALARA by means of automated exposure control. COMPARISON: 11/08/18. FINDINGS: ABDOMEN: The liver, spleen, gallbladder, bile ducts, pancreas, adrenal glands and kidneys are normal. I see no evidence of bowel obstruction or free air. No adenopathy is present. No acute vascular abno rmality is seen. The lung bases are clear. PELVIS: There are scattered sigmoid diverticula. There is acute inflammation involving the proximal s igmoid colon anteriorly. There is associated bowel wall thickening and pericolonic soft tissue strand ing. I see no evidence of abscess, extraluminal gas or bowel obstruction. The inflammatory changes ar e in the same region as on the 2019 study. The distal ureters, urinary bladder and prostate gland are normal. A normal appendix is present. No a bnormal mass or fluid collection is seen. I do not identify a hernia. No acute osseous abnormality is seen. IMPRESSION: Mild to moderate acute, uncomplicated diverticulitis involving the proximal sigmoid colon . Signer Name: Bandar Harp MD Signed: 03/26/2021 4:26 PM Workstation Name: [id number]
[2021-03-26 17:16] LABS: Alanine Aminotransferase 7 units/L (7-56); Albumin 4.5 g/dL (3.9-5); BUN/Creatinine Ratio 7; Blood Urea Nitrogen 6 mg/dL (9-20); Calcium 9.2 mg/dL (8.4-10.2); Hemolysis Index 9
[2021-03-26 18:09] VITALS: BP 131/94
== END 2021-03-26 18:11 | disposition home or self-care (01) ==
LOC: ED 13:16
DX: K57.32 Diverticulitis of large intestine without perforation or abscess without bleeding (principal); F17.200 Nicotine dependence, unspecified, uncomplicated; F12.90 Cannabis use, unspecified, uncomplicated
CPT/HCPCS: 36415; 74177; 80048; 80053; 80076; 81001; 85025; 96374; 96375; 99284; J1885; J2405; Q9967